=== PATIENT | male | born 1950 | race Caucasian/White ===

== ENCOUNTER 2020-09-29 14:54 | Inpatient (IN) ==
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
[2020-09-29] MEDS: SODIUM CHLORIDE 0.9% 1000ML 1,000 ML IV SCH ×2 (15:27→22:21)
[2020-09-29] MEDS ORDERED: SODIUM CHLORIDE 0.9% 1000ML 1,000 ML IV SCH (15:30)
[2020-09-29 15:41] LABS: Basophils # (auto) 0.02 K/uL (0-0.2); Basophils % (auto) 0.1 %; Eosinophils # (auto) 0.01 K/uL (0-0.5); Eosinophils % (auto) 0.1 %; Hematocrit (blood only) 43.3 % (42-52); Hemoglobin 14.8 g/dL (14.0-18.0); Immature Granulocytes # (auto) 0.06 K/uL (0.00-0.02); Immature Granulocytes % (auto) 0.4 %; Lymphocytes # (auto) 0.93 K/uL (1.2-3.4); Lymphocytes % (auto) 5.8 %; Mean Corpuscular Hemoglobin 31.6 pg (25-34); Mean Corpuscular Hgb Conc 34.2 g/dL (32-36); Mean Corpuscular Volume 92.5 fL (80-100); Mean Platelet Volume 10.2 fL (7.4-10.4); Monocytes # (auto) 1.57 K/uL (0.11-0.59); Monocytes % (auto) 9.7 %; Neutrophils # (auto) 13.56 K/uL (1.4-6.5); Neutrophils % (auto) 83.9 %; Platelet Count 256 K/uL (130-400); RDW Coefficient of Variation 13.4 % (11.5-14.5); RDW Standard Deviation 45.2 fL (36.4-46.3); Red Blood Count 4.68 M/uL (4.7-6.1); White Blood Count 16.15 K/uL (4.8-10.8)
[2020-09-29 15:53] LABS: INR 1.2 (0.9-1.1); Partial Thromboplastin Time 25.6 Seconds (21.0-31.0); Prothrombin Time 11.9 Seconds (9.0-12.0)
--- NOTE | 2020-09-29 16:01 | XRay Report ---
XR chest 1V portable CLINICAL HISTORY: SEPSIS COMPARISON STUDY: No previous studies for comparison. FINDINGS: The heart is mildly enlarged. There is aortic tortuosity/ectasia. There is no focal pulmona ry consolidation. A catheter/tubing overlies the left hemithorax. There is a minor scoliosis.[Slight increased density of the left lateral chest wall and left lung periphery, likely relates to technical factors IMPRESSION: No active disease in the chest. ACT 112: Negative or not required by law. Electronically signed by: Rigo Lozano M.D. 09/29/2020 3:59 PM
[2020-09-29 16:05] LABS: Albumin Level 3.3 gm/dl (3.4-5.0); BUN Creatinine Ratio 13.1 (10-20); Creatinine Clr Calc Pharmacy 29.6 ml/min; Est GFR (African American) 38.3 ml/min; Est GFR (Non-African American) 33.1 ml/min; Magnesium 2.3 mg/dl (1.8-2.4); Potassium 4.8 mmol/L (3.5-5.1)
[2020-09-29 16:08] LABS: Albumin Globulin Ratio 0.9 (0.9-2); Bilirubin,Total 1.8 mg/dl (0.2-1); Globulin 3.7 gm/dl (2.5-4.0)
[2020-09-29] MEDS ORDERED: HYDROCORTISONE SOD SUCCINATE 100 MG/2 ML VIAL IV STA (16:53)
[2020-09-29] MEDS ORDERED: CEFEPIME 2,000 MG/20 ML VIAL IV STA (16:53)
[2020-09-29] MEDS ORDERED: DAPTOmycin 475 MG in SYRINGE 0 ML IV ONE (16:53)
[2020-09-29] MEDS ORDERED: SODIUM CHLORIDE 0.9% 1000ML 1,000 ML IV ONE (16:53)
[2020-09-29] MEDS ORDERED: ONDANSETRON INJ 2 MG/ML 2 ML VIAL IV STA ×2 (17:06→18:43)
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
[2020-09-29 18:46] LABS: BUN Creatinine Ratio 16.4 (10-20); Calcium 8.2 mg/dl (8.5-10.1); Creatinine Clr Calc Pharmacy 32.9 ml/min; Est GFR (African American) 43.5 ml/min; Est GFR (Non-African American) 37.6 ml/min; Potassium 4.9 mmol/L (3.5-5.1)
[2020-09-29] MEDS ORDERED: CONSULT PHARMACY STA (19:49)
[2020-09-29] MEDS ORDERED: CEFEPIME CONSULT ACTIVE ONE (19:49)
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
--- NOTE | 2020-09-29 20:09 | CT Scan Report ---
CT head/brain wo con CLINICAL HISTORY: Blurry vision COMPARISON STUDY: No previous studies for comparison. TECHNIQUE: Axial CT of the brain is performed from the vertex to the skull base. IV contrast was not administered for this examination. A dose lowering technique was utilized adhering to the principles of ALARA. CT DOSE: 614.27 mGy.cm FINDINGS: No intra or extra-axial mass lesions are visualized. There is no CT evidence of acute cortical infarc tion. There is no evidence of midline shift. There is no acute hemorrhage. No calvarial fractures ar e visualized. There are minimal white matter hypodensities likely on a small vessel basis. There is no evidence of pathologic ventricular dilatation. There is minor ethmoid sinus mucosal thickening IMPRESSION: No acute intracranial findings ACT 112: Negative or not required by law. Electronically signed by: Rigo Lozano M.D. 09/29/2020 8:07 PM
[2020-09-29] MEDS ORDERED: ACETAMINOPHEN 325 MG TAB PO PRN (20:20)
[2020-09-29] MEDS ORDERED: Heparin IV Adult Wt-Based Standard *NO* Bolus Protocol ONE (20:20)
[2020-09-29] MEDS ORDERED: ICU PROTOCOL FOR HYPERGLYCEMIA PRN (20:20)
[2020-09-29] MEDS ORDERED: HEPARIN SODIUM/DEXTROSE 25,000 UNITS/500 ML BAG IV SCH (20:20)
[2020-09-29] MEDS ORDERED: ACYCLOVIR CONSULT ACTIVE PRN (20:30)
[2020-09-29] MEDS ORDERED: CEFEPIME CONSULT ACTIVE PRN (20:31)
[2020-09-29] MEDS ORDERED: SODIUM CHLORIDE 0.9% 50 ML BAG IV STA (21:06)
[2020-09-29] MEDS ORDERED: ALTEPLASE, RECOMBINANT 100 MG in EMPTY BAG 0 ML IV STA (21:06)
[2020-09-29] MEDS ORDERED: PRIMARY PLUMSET, PE LINED TUBING, 113 IN, NON-DEHP (2260-0500) IV STA (21:06)
[2020-09-29] MEDS ORDERED: DC ALL ANTICOAGULANTS STA (21:06)
--- NOTE | 2020-09-29 21:12 | Procedure Note ---
Procedure Note Date of Service September 29, 2020 Procedure: Arterial Line Placement Attending: Dr. Booker APC: Raad Santoro PA-C Indication: Monitoring on Pressors Anesthesia: Lidocaine 1% Verbal consent was discussed with the patient at great length at bedside. The patient did have a conversation with my attending physician regarding lifesaving measures including access as well as utilization of TPA for likely massive pulmonary embolism who is hemodynamically unstable. Indication, risks, and benefits were explained at length. Patient verbally consents to procedure in the setting of active extremis and need for close hemodynamic monitoring. A time-out was completed verifying correct patient, procedure, site, positioning, and implant(s) or special equipment if applicable. Allens test was performed to ensure adequate perfusion. Patients LEFT wrist was prepped and draped in the usual sterile fashion. Ultrasound guidance was used to aid needle placement. A 20g Arrow arterial line was introduced into the LEFT Radial artery. Catheter was threaded, and the needle was removed with appropriate blood return. Good waveform was observed. The patient tolerated the procedure well. Confirmation of placement with ultrasound. Blood Loss: Minimal Complications: Small, 1.5 cm hematoma noted at the access point. Line in place. Returns blood, flushes well. Transducing arterial wave forms appropriately. 4x4 gauze and sterile dressing placed. Will monitor for worsening hematoma or s/s of bleeding. Procedural Ultrasound Guidance: Procedure Date: Indication: Massive PE with poor hemodynamics, need for close BP monitoring prior to TPA administration, need for frequent labs s/p TPA administration. Attending: Dr. Booker APC: Raad Santoro PA-C Artery Identified: YES Line confirmed in Artery with ultrasound: YES Complications: NONE Patient tolerated procedure: WELL Coding CPT Codes Tubes, Drains, and Vasc Access - Tubes, Drains, and Vasc Access: [id number] Place Catheter In Artery ([id number]) [facility] [place]Charges[place] Tubes, Drains, and Vasc Access Procedure 1: Tubes, Drains, and Vasc Access: [id number] Place Catheter In Artery
[2020-09-29] MEDS ORDERED: Heparin IV Adult Wt-Based Low-Dose *NO* Bolus Protocol IV SCH (21:15)
[2020-09-29] MEDS ORDERED: ALTEPLASE, RECOMBINANT 10 MG in SYRINGE 0 ML IV ONE (21:28)
[2020-09-29] MEDS ORDERED: ALTEPLASE IV ONE (21:30)
[2020-09-29] MEDS ORDERED: NSS 50 ML--Send if TPA given as SVP IV ONE (21:30)
[2020-09-29] MEDS ORDERED: PRIMARY PLUMSET--Send if TPA given as SVP IV ONE (21:30)
[2020-09-29] MEDS ORDERED: RECOMBINANT IV ONE (21:30)
[2020-09-29 21:32] LABS: BUN Creatinine Ratio 20.3 (10-20); Calcium 7.9 mg/dl (8.5-10.1); Creatinine Clr Calc Pharmacy 53.8 ml/min; Est GFR (African American) 52.2 ml/min; Potassium 4.9 mmol/L (3.5-5.1)
[2020-09-29 21:37] LABS: Troponin I 2.44 ng/ml (0-0.045)
[2020-09-29] MEDS: DEXTROSE 5% IV SCH (21:37)
[2020-09-29] MEDS: ACYCLOVIR SOD IV SCH (21:37)
[2020-09-29] MEDS: DOCUSATE SODIUM 100 MG CAP PO SCH (23:26)
[2020-09-30 00:33] LABS: Hematocrit (blood only) 37.2 % (42-52); Hemoglobin 12.8 g/dL (14.0-18.0); Mean Corpuscular Hemoglobin 31.6 pg (25-34); Mean Corpuscular Hgb Conc 34.4 g/dL (32-36); Mean Corpuscular Volume 91.9 fL (80-100); Mean Platelet Volume 10.1 fL (7.4-10.4); Platelet Count 169 K/uL (130-400); RDW Coefficient of Variation 13.3 % (11.5-14.5); Red Blood Count 4.05 M/uL (4.7-6.1); White Blood Count 13.47 K/uL (4.8-10.8)
[2020-09-30 00:48] LABS: Partial Thromboplastin Ratio 1.6; Partial Thromboplastin Time 41.8 Seconds (21.0-31.0)
[2020-09-30 01:17] LABS: Appearance Urine Cloudy (Clear); Bacteria Urine Automated Negative (Negative); Blood Urine 1+ (Negative); Color Urine Dark Yellow; Glucose Urine UA Negative (Negative); Ketones Urine Trace (Negative); Leukocyte Esterase Urine Negative (Negative); Nitrite Urine Negative (Negative); Protein Urine 2+ (Negative); Specific Gravity Urine 1.021 (1.000-1.030); Urobilinogen Urine Negative (Negative)
[2020-09-30 01:29] LABS: Bilirubin Urine 1+ (Negative)
[2020-09-30 01:45] LABS: Partial Thromboplastin Ratio 1.4
[2020-09-30] MEDS: HEPARIN SODIUM/DEXTROSE 25,000 UNITS/500 ML BAG IV SCH ×2 (02:30→23:20)
[2020-09-30 02:42] LABS: Partial Thromboplastin Ratio 1.3; Partial Thromboplastin Time 33.5 Seconds (21.0-31.0)
[2020-09-30 05:43] LABS: Partial Thromboplastin Ratio 1.4
[2020-09-30 05:52] LABS: Albumin Level 2.5 gm/dl (3.4-5.0); BUN Creatinine Ratio 35.4 (10-20); Basophils # (auto) 0.02 K/uL (0-0.2); Basophils % (auto) 0.2 %; Calcium 7.7 mg/dl (8.5-10.1); Creatinine Clr Calc Pharmacy 74.5 ml/min; Est GFR (African American) 77.3 ml/min; Est GFR (Non-African American) 66.7 ml/min; Hematocrit (blood only) 35.6 % (42-52); Hemoglobin 12.2 g/dL (14.0-18.0); Immature Granulocytes # (auto) 0.03 K/uL (0.00-0.02); Immature Granulocytes % (auto) 0.3 %; Lymphocytes # (auto) 1.53 K/uL (1.2-3.4); Lymphocytes % (auto) 12.9 %; Mean Corpuscular Hemoglobin 31.6 pg (25-34); Mean Corpuscular Hgb Conc 34.3 g/dL (32-36); Mean Corpuscular Volume 92.2 fL (80-100); Mean Platelet Volume 10.4 fL (7.4-10.4); Monocytes # (auto) 1.18 K/uL (0.11-0.59); Neutrophils # (auto) 9.09 K/uL (1.4-6.5); Neutrophils % (auto) 76.6 %; Platelet Count 182 K/uL (130-400); Potassium 4.3 mmol/L (3.5-5.1); RDW Coefficient of Variation 13.5 % (11.5-14.5); RDW Standard Deviation 44.9 fL (36.4-46.3); Red Blood Count 3.86 M/uL (4.7-6.1); White Blood Count 11.85 K/uL (4.8-10.8)
[2020-09-30 05:59] LABS: Albumin Globulin Ratio 0.9 (0.9-2); Bilirubin,Total 1.4 mg/dl (0.2-1); Globulin 2.7 gm/dl (2.5-4.0); Phosphorus 3.4 mg/dl (2.5-4.9); Total Protein 5.2 gm/dl (6.4-8.2); Troponin I 2.05 ng/ml (0-0.045)
[2020-09-30] MEDS ORDERED: CEFEPIME 2,000 MG in SYRINGE 0 ML IV SCH (06:00)
--- NOTE | 2020-09-30 06:26 | Electrocardiogram Report ---
Test Reason : Blood Pressure : / mmHG Vent. Rate : 142 BPM Atrial Rate : 144 BPM P-R Int : 120 ms QRS Dur : 094 ms QT Int : 348 ms P-R-T Axes : 000 052 007 degrees QTc Int : 535 ms Poor data quality, interpretation may be adversely affected Sinus tachycardia Otherwise normal ECG No previous ECGs available Confirmed by Gregory Hoff ([id number]) on 09/30/2020 6:26:05 AM Referred By: Confirmed By:Gregory Hoff
--- NOTE | 2020-09-30 06:41 | Ultrasound Report ---
BILATERAL LOWER EXTREMITY VENOUS DOPPLER HISTORY: Acute pain and swelling of the right lower extremity eval ?DVT COMPARISON STUDY: None. FINDINGS: There is normal compressibility, flow, and augmentation within the left lower extremity jefry p venous structures. Occlusive thrombus noted within the right posterior tibial, peroneal and anterio r tibial veins. Superficial venous thrombosis within the right lesser saphenous vein, 4.7 cm from the popliteal confluence. IMPRESSION: 1. Right lower extremity deep and superficial venous thrombi as above. 2. No sonographic evidence of left-sided deep venous thrombosis. ACT 112: Negative or not required by law. Electronically signed by: Evens Thayer M.D. 09/30/2020 6:39 AM
[2020-09-30] MEDS ORDERED: HEPARIN IV BOLUS 3,000 UNITS in SYRINGE 0 ML IV SCH (07:00)
--- NOTE | 2020-09-30 07:01 | XRay Report ---
XR chest 1V portable HISTORY: 70 years-old Male f/u follow-up study in a patient with sepsis COMPARISON: 09/29/2020 TECHNIQUE: Portable AP view of the chest FINDINGS: Cardiomediastinal and hilar silhouettes are within normal limits. Calcified plaque the thoracic aorta . There is no pneumothorax, pleural effusion, airspace consolidation or overt pulmonary edema. Degene rative changes of the spine and left shoulder. IMPRESSION: No acute process. ACT 112: Negative or not required by law. The above report was generated using voice recognition software. It may contain grammatical, syntax o r spelling errors. Electronically signed by: Evens Thayer M.D. 09/30/2020 7:00 AM
--- NOTE | 2020-09-30 07:56 | Ultrasound Report ---
EXAMINATION: RENAL ULTRASOUND CLINICAL HISTORY: Acute renal insufficiency COMPARISON STUDY: None FINDINGS: The right kidney measures 11.6 cm. The left kidney measures approximately 12 cm. There is no evidence of hydronephrosis. There is a 21 mm right renal cyst. There is right renal cortical thin adi. Evaluation left kidney was limited as the patient was unable to cooperate with positioning. Neither ureteral jet was visualized. IMPRESSION : No evidence of hydronephrosis ACT 112: Negative or not required by law. Electronically signed by: Rigo Lozano M.D. 09/30/2020 7:54 AM
--- NOTE | 2020-09-30 08:07 | Critical Care Progress Note ---
Date of Service September 30, 2020 Assessment & Plan (1) Admitted to intensive care unit: Reason Critically Ill: 70-year-old male presenting with acute onset of hypertension, tachycardia, generalized weakness with concerns for possible sepsis-like presentation with elevated troponin of concern requiring close hemodynamic monitoring and possible need for pressors. NEURO - * CAM ICU: NEGATIVE * Ocular myasthenia: * Patient currently on steroids every other day. * Receive stress dose steroids in the emergency department. * Continue with daily p.o. dosing. CARDIAC/VASCULAR - * Acute cor pulmonale * Troponin greater than 3. * Start low-dose beta-sandy * Repeat limited echo * troponins down trending. * Hypotension: resolved * tachycardia: Improved RESPIRATORY - * Massive PE: * repeat limited echo * Supplemental O2 as needed: improving * COPD: * Ongoing home Rx as needed. GI/NUTRITION - * N.p.o. pending TPA administration. * Prophylaxis: Famotidine RENAL/LYTES - * SANTI: resolved * Lactic acid acidosis: Resolved - * UA reviewed: Hyaline casts and granular casts ENDO - * No history of diabetes or thyroid disease. * BSGs per unit protocol. ISS --> gtt per unit policy. HEME - * Stable H&H * Monitor closely for signs/symptoms of bleeding status post TPA administration. * Type and screen prior to TPA administration. ID - * Sepsis-like presentation: * Discontinue antibiotics LINES/IV ACCESS - * PIVs x3 * LEFT radial A-line DVT PROPHYLAXIS - * TPA --> heparin drip * SCDs Disposition: Able for downgrade out of ICU after 24 hours status post TPA (2) Elevated troponin: (3) SANTI (acute kidney injury): (4) Acute hypotension: (5) Tachycardia: (6) Sepsis: (7) DVT of axillary vein, acute right: Admission and Anticipated Discharge Date Admission Date: September 29, 2020 Supervising Physician Co-Signing Physician Notes Patient was discussed on multidisciplinary rounds I have personally spent 45 minutes of critical care time in the direct management of this patient. This is a life/limb threatening event. This includes time spent evaluating patient, direct bedside care, chart review, placing orders, interpretation of diagnostic studies, discussion with consultants, patient, and/or family members regarding treatment decisions, as well as other required patient management activities. This time is exclusive of all separately billable procedures, and teaching time and separate from and in addition to any other critical care service time. Subjective Feels improved compared to yesterday complains of diarrhea today Review of Systems Review of Systems: Diarrhea Physical Exam Physical Exam: General: Alert. nontoxic. Skin: Warm, dry, Head: Atraumatic Ears, nose, mouth and throat: airway patent Cardiovascular: Normal peripheral perfusion Respiratory: no respiratory distress Gastrointestinal: Non distended Musculoskeletal: No deformity Results & Data Results & Data ([facility]) Vital Signs (Past 12 Hours) Vital Signs Temp Pulse Pulse Resp BP BP Pulse Ox 09/30/20 04:37 101 H 27 H 112/78 94 09/30/20 04:30 107 H 25 H 96 09/30/20 03:37 97 H 21 108/83 94 09/30/20 03:30 99 H 25 H 93 09/30/20 03:00 102 H 23 94 09/30/20 02:37 103 H 20 111/77 95 09/30/20 02:30 101 H 25 H 93 09/30/20 02:00 103 H 24 93 09/30/20 01:37 103 H 27 H 161/96 H 96 09/30/20 01:32 101 H 26 H 102/78 94 09/30/20 01:30 94 H 24 94 09/30/20 01:27 88 26 H 98/72 L 95 09/30/20 01:22 93 H 25 H 93/71 L 95 09/30/20 01:17 93 H 29 H 96/72 L 93 09/30/20 01:12 97 H 21 111/83 96 09/30/20 01:07 95 H 25 H 106/85 93 09/30/20 01:02 93 H 24 111/73 90 09/30/20 01:00 97 H 20 94 09/30/20 00:57 99 H 23 111/81 93 09/30/20 00:52 99 H 26 H 108/70 95 09/30/20 00:47 99 H 28 H 106/73 93 09/30/20 00:42 96 H 26 H 107/73 95 09/30/20 00:37 99 H 25 H 98/72 L 95 09/30/20 00:32 102 H 26 H 104/73 96 09/30/20 00:30 97 H 24 96 09/30/20 00:27 104 H 22 106/74 95 09/30/20 00:22 104 H 23 112/79 95 09/30/20 00:17 102 H 27 H 105/76 92 09/30/20 00:12 101 H 29 H 110/71 92 09/30/20 00:07 105 H 24 113/75 94 09/30/20 00:02 112 H 30 H 119/91 97 09/30/20 00:00 109 H 27 H 95 09/29/20 23:57 113 H 26 H 151/94 H 95 09/29/20 23:52 100 H 25 H 104/77 96 09/29/20 23:47 110 H 22 108/68 94 09/29/20 23:42 105 H 27 H 108/71 95 09/29/20 23:37 107 H 23 108/79 95 09/29/20 23:32 107 H 23 117/72 96 09/29/20 23:30 107 H 25 H 96 09/29/20 23:27 115 H 23 103/78 96 09/29/20 23:22 110 H 26 H 99/70 L 96 09/29/20 23:17 113 H 25 H 95/71 L 96 09/29/20 23:12 116 H 27 H 90/66 L 94 09/29/20 23:07 111 H 24 90/67 L 94 09/29/20 23:02 113 H 27 H 92/66 L 94 09/29/20 23:00 115 H 28 H 94 09/29/20 22:47 116 H 26 H 98/71 L 94 09/29/20 22:12 121 H 24 116/84 91 09/29/20 22:07 122 H 32 H 102/71 91 09/29/20 22:02 126 H 29 H 96/77 L 89 L 09/29/20 22:00 120 H 24 92 09/29/20 21:57 121 H 23 109/90 90 09/29/20 21:52 122 H 25 H 107/80 91 09/29/20 21:47 122 H 28 H 107/82 91 09/29/20 21:42 121 H 30 H 97/72 L 92 09/29/20 21:37 121 H 23 85/71 L 92 09/29/20 21:32 122 H 22 106/76 92 09/29/20 21:30 120 H 28 H 92 09/29/20 21:27 123 H 28 H 108/78 91 09/29/20 21:12 123 H 25 H 109/79 92 09/29/20 21:01 125 H 26 H 109/81 92 09/29/20 21:00 126 H 21 91 09/29/20 20:30 124 H 22 92 09/29/20 20:25 126 H 30 H 115/85 91 09/29/20 20:20 36.6 C 130 H 130 H 22 115/85 96 09/29/20 20:17 130 H 26 H 93 Pulse Ox 09/30/20 04:37 09/30/20 04:30 09/30/20 03:37 09/30/20 03:30 09/30/20 03:00 09/30/20 02:37 09/30/20 02:30 09/30/20 02:00 09/30/20 01:37 09/30/20 01:32 09/30/20 01:30 09/30/20 01:27 09/30/20 01:22 09/30/20 01:17 09/30/20 01:12 09/30/20 01:07 09/30/20 01:02 09/30/20 01:00 09/30/20 00:57 09/30/20 00:52 09/30/20 00:47 09/30/20 00:42 09/30/20 00:37 09/30/20 00:32 09/30/20 00:30 09/30/20 00:27 09/30/20 00:22 09/30/20 00:17 09/30/20 00:12 09/30/20 00:07 09/30/20 00:02 09/30/20 00:00 09/29/20 23:57 09/29/20 23:52 09/29/20 23:47 09/29/20 23:42 09/29/20 23:37 09/29/20 23:32 09/29/20 23:30 09/29/20 23:27 09/29/20 23:22 09/29/20 23:17 09/29/20 23:12 09/29/20 23:07 09/29/20 23:02 09/29/20 23:00 09/29/20 22:47 09/29/20 22:12 09/29/20 22:07 09/29/20 22:02 09/29/20 22:00 09/29/20 21:57 09/29/20 21:52 09/29/20 21:47 09/29/20 21:42 09/29/20 21:37 09/29/20 21:32 09/29/20 21:30 09/29/20 21:27 09/29/20 21:12 09/29/20 21:01 09/29/20 21:00 09/29/20 20:30 09/29/20 20:25 09/29/20 20:20 92 09/29/20 20:17 Laboratory Results 09/30/20 09/30/20 09/30/20 Range/Units 06:04 05:19 05:19 WBC (4.8-10.8) K/uL RBC (4.7-6.1) M/uL Hgb (14.0-18.0) g/dL Hct (42-52) % MCV (80-100) fL MCH (25-34) pg MCHC (32-36) g/dL RDW Std Deviation (36.4-46.3) fL RDW Coeff of Willian (11.5-14.5) % Plt Count (130-400) K/uL MPV (7.4-10.4) fL Immature Gran % (Auto) % Neut % (Auto) % Lymph % (Auto) % [place] % (Auto) % Eos % (Auto) % Baso % (Auto) % Neut # (Auto) (1.4-6.5) K/uL Lymph # (Auto) (1.2-3.4) K/uL [place] # (Auto) (0.11-0.59) K/uL Eos # (Auto) (0-0.5) K/uL Baso # (Auto) (0-0.2) K/uL Immature Gran # (Auto) (0.00-0.02) K/uL PT (9.0-12.0) Seconds INR (0.9-1.1) APTT (21.0-31.0) Seconds PTT Ratio Sodium (136-145) mmol/L Potassium (3.5-5.1) mmol/L Chloride (98-107) mmol/L Carbon Dioxide (21-32) mmol/L Anion Gap (3-11) BUN (7-18) mg/dl Creatinine (0.6-1.4) mg/dl Est Cr Clr Drug Dosing ml/min Est GFR ( Amer) ml/min Est GFR (Non-Af Amer) ml/min BUN/Creatinine Ratio (10-20) Glucose (70-99) mg/dl POC Glucose 116 H (70-99) mg/dl Lactate (0.4-2.0) mmol/L Calcium (8.5-10.1) mg/dl Phosphorus (2.5-4.9) mg/dl Magnesium (1.8-2.4) mg/dl Total Bilirubin (0.2-1) mg/dl AST (15-37) U/L ALT (12-78) U/L Alkaline Phosphatase (45-117) U/L Troponin I (0-0.045) ng/ml NT-Pro-B Natriuret Pep (0-900) pg/ml Total Protein (6.4-8.2) gm/dl Albumin (3.4-5.0) gm/dl Globulin (2.5-4.0) gm/dl Albumin/Globulin Ratio (0.9-2) Procalcitonin 0.15 (0-0.5) ng/ml Random Cortisol Pending Urine Color Urine Appearance (Clear) Urine pH (4.5-7.5) Ur Specific [place] (1.000-1.030) Urine Protein (Negative) Urine Glucose (UA) (Negative) Urine Ketones (Negative) Urine Blood (Negative) Urine Nitrite (Negative) Urine Bilirubin (Negative) Urine Urobilinogen (Negative) Ur Leukocyte Esterase (Negative) Urine WBC (Auto) (0-5) /hpf Urine RBC (Auto) (0-4) /hpf U Hyaline Cast (Auto) (0-5) /lpf U Epithel Cells (Auto) (0-5) /lpf Urine Bacteria (Auto) (Negative) Granular Casts (0) /lpf Nasal Screen MRSA (PCR) (Negative) COVID-19 Eval Order SARS-CoV-2 (PCR) (Negative) Blood Type Antibody Screen 09/30/20 09/30/20 09/30/20 Range/Units 05:19 05:19 05:19 WBC 11.85 H (4.8-10.8) K/uL RBC 3.86 L (4.7-6.1) M/uL Hgb 12.2 L (14.0-18.0) g/dL Hct 35.6 L (42-52) % MCV 92.2 (80-100) fL MCH 31.6 (25-34) pg MCHC 34.3 (32-36) g/dL RDW Std Deviation 44.9 (36.4-46.3) fL RDW Coeff of Willian 13.5 (11.5-14.5) % Plt Count 182 (130-400) K/uL MPV 10.4 (7.4-10.4) fL Immature Gran % (Auto) 0.3 % Neut % (Auto) 76.6 % Lymph % (Auto) 12.9 % [place] % (Auto) 10.0 % Eos % (Auto) 0.0 % Baso % (Auto) 0.2 % Neut # (Auto) 9.09 H (1.4-6.5) K/uL Lymph # (Auto) 1.53 (1.2-3.4) K/uL [place] # (Auto) 1.18 H (0.11-0.59) K/uL Eos # (Auto) 0.00 (0-0.5) K/uL Baso # (Auto) 0.02 (0-0.2) K/uL Immature Gran # (Auto) 0.03 H (0.00-0.02) K/uL PT (9.0-12.0) Seconds INR (0.9-1.1) APTT 37.0 H (21.0-31.0) Seconds PTT Ratio 1.4 Sodium (136-145) mmol/L Potassium (3.5-5.1) mmol/L Chloride (98-107) mmol/L Carbon Dioxide (21-32) mmol/L Anion Gap (3-11) BUN (7-18) mg/dl Creatinine (0.6-1.4) mg/dl Est Cr Clr Drug Dosing ml/min Est GFR ( Amer) ml/min Est GFR (Non-Af Amer) ml/min BUN/Creatinine Ratio (10-20) Glucose (70-99) mg/dl POC Glucose (70-99) mg/dl Lactate 1.0 (0.4-2.0) mmol/L Calcium (8.5-10.1) mg/dl Phosphorus (2.5-4.9) mg/dl Magnesium (1.8-2.4) mg/dl Total Bilirubin (0.2-1) mg/dl AST (15-37) U/L ALT (12-78) U/L Alkaline Phosphatase (45-117) U/L Troponin I (0-0.045) ng/ml NT-Pro-B Natriuret Pep (0-900) pg/ml Total Protein (6.4-8.2) gm/dl Albumin (3.4-5.0) gm/dl Globulin (2.5-4.0) gm/dl Albumin/Globulin Ratio (0.9-2) Procalcitonin (0-0.5) ng/ml Random Cortisol Urine Color Urine Appearance (Clear) Urine pH (4.5-7.5) Ur Specific [place] (1.000-1.030) Urine Protein (Negative) Urine Glucose (UA) (Negative) Urine Ketones (Negative) Urine Blood (Negative) Urine Nitrite (Negative) Urine Bilirubin (Negative) Urine Urobilinogen (Negative) Ur Leukocyte Esterase (Negative) Urine WBC (Auto) (0-5) /hpf Urine RBC (Auto) (0-4) /hpf U Hyaline Cast (Auto) (0-5) /lpf U Epithel Cells (Auto) (0-5) /lpf Urine Bacteria (Auto) (Negative) Granular Casts (0) /lpf Nasal Screen MRSA (PCR) (Negative) COVID-19 Eval Order SARS-CoV-2 (PCR) (Negative) Blood Type Antibody Screen 09/30/20 09/30/20 09/30/20 Range/Units 05:19 02:15 01:15 WBC (4.8-10.8) K/uL RBC (4.7-6.1) M/uL Hgb (14.0-18.0) g/dL Hct (42-52) % MCV (80-100) fL MCH (25-34) pg MCHC (32-36) g/dL RDW Std Deviation (36.4-46.3) fL RDW Coeff of Willian (11.5-14.5) % Plt Count (130-400) K/uL MPV (7.4-10.4) fL Immature Gran % (Auto) % Neut % (Auto) % Lymph % (Auto) % [place] % (Auto) % Eos % (Auto) % Baso % (Auto) % Neut # (Auto) (1.4-6.5) K/uL Lymph # (Auto) (1.2-3.4) K/uL [place] # (Auto) (0.11-0.59) K/uL Eos # (Auto) (0-0.5) K/uL Baso # (Auto) (0-0.2) K/uL Immature Gran # (Auto) (0.00-0.02) K/uL PT (9.0-12.0) Seconds INR (0.9-1.1) APTT 33.5 H 38.0 H (21.0-31.0) Seconds PTT Ratio 1.3 1.4 Sodium 141 (136-145) mmol/L Potassium 4.3 (3.5-5.1) mmol/L Chloride 113 H (98-107) mmol/L Carbon Dioxide 25 (21-32) mmol/L Anion Gap 3.0 (3-11) BUN 40 H (7-18) mg/dl Creatinine 1.12 D (0.6-1.4) mg/dl Est Cr Clr Drug Dosing 74.5 ml/min Est GFR ( Amer) 77.3 ml/min Est GFR (Non-Af Amer) 66.7 ml/min BUN/Creatinine Ratio 35.4 H (10-20) Glucose 120 H (70-99) mg/dl POC Glucose (70-99) mg/dl Lactate (0.4-2.0) mmol/L Calcium 7.7 L (8.5-10.1) mg/dl Phosphorus 3.4 (2.5-4.9) mg/dl Magnesium 2.0 (1.8-2.4) mg/dl Total Bilirubin 1.4 H (0.2-1) mg/dl AST 28 (15-37) U/L ALT 39 (12-78) U/L Alkaline Phosphatase 61 (45-117) U/L Troponin I 2.050 H* (0-0.045) ng/ml NT-Pro-B Natriuret Pep (0-900) pg/ml Total Protein 5.2 L D (6.4-8.2) gm/dl Albumin 2.5 L (3.4-5.0) gm/dl Globulin 2.7 (2.5-4.0) gm/dl Albumin/Globulin Ratio 0.9 (0.9-2) Procalcitonin (0-0.5) ng/ml Random Cortisol Urine Color Urine Appearance (Clear) Urine pH (4.5-7.5) Ur Specific [place] (1.000-1.030) Urine Protein (Negative) Urine Glucose (UA) (Negative) Urine Ketones (Negative) Urine Blood (Negative) Urine Nitrite (Negative) Urine Bilirubin (Negative) Urine Urobilinogen (Negative) Ur Leukocyte Esterase (Negative) Urine WBC (Auto) (0-5) /hpf Urine RBC (Auto) (0-4) /hpf U Hyaline Cast (Auto) (0-5) /lpf U Epithel Cells (Auto) (0-5) /lpf Urine Bacteria (Auto) (Negative) Granular Casts (0) /lpf Nasal Screen MRSA (PCR) (Negative) COVID-19 Eval Order SARS-CoV-2 (PCR) (Negative) Blood Type Antibody Screen 09/30/20 09/30/20 09/30/20 Range/Units 00:56 00:21 00:21 WBC 13.47 H (4.8-10.8) K/uL RBC 4.05 L (4.7-6.1) M/uL Hgb 12.8 L (14.0-18.0) g/dL Hct 37.2 L (42-52) % MCV 91.9 (80-100) fL MCH 31.6 (25-34) pg MCHC 34.4 (32-36) g/dL RDW Std Deviation 45.0 (36.4-46.3) fL RDW Coeff of Willian 13.3 (11.5-14.5) % Plt Count 169 (130-400) K/uL MPV 10.1 (7.4-10.4) fL Immature Gran % (Auto) % Neut % (Auto) % Lymph % (Auto) % [place] % (Auto) % Eos % (Auto) % Baso % (Auto) % Neut # (Auto) (1.4-6.5) K/uL Lymph # (Auto) (1.2-3.4) K/uL [place] # (Auto) (0.11-0.59) K/uL Eos # (Auto) (0-0.5) K/uL Baso # (Auto) (0-0.2) K/uL Immature Gran # (Auto) (0.00-0.02) K/uL PT (9.0-12.0) Seconds INR (0.9-1.1) APTT 41.8 H (21.0-31.0) Seconds PTT Ratio 1.6 Sodium (136-145) mmol/L Potassium (3.5-5.1) mmol/L Chloride (98-107) mmol/L Carbon Dioxide (21-32) mmol/L Anion Gap (3-11) BUN (7-18) mg/dl Creatinine (0.6-1.4) mg/dl Est Cr Clr Drug Dosing ml/min Est GFR ( Amer) ml/min Est GFR (Non-Af Amer) ml/min BUN/Creatinine Ratio (10-20) Glucose (70-99) mg/dl POC Glucose (70-99) mg/dl Lactate (0.4-2.0) mmol/L Calcium (8.5-10.1) mg/dl Phosphorus (2.5-4.9) mg/dl Magnesium (1.8-2.4) mg/dl Total Bilirubin (0.2-1) mg/dl AST (15-37) U/L ALT (12-78) U/L Alkaline Phosphatase (45-117) U/L Troponin I (0-0.045) ng/ml NT-Pro-B Natriuret Pep (0-900) pg/ml Total Protein (6.4-8.2) gm/dl Albumin (3.4-5.0) gm/dl Globulin (2.5-4.0) gm/dl Albumin/Globulin Ratio (0.9-2) Procalcitonin (0-0.5) ng/ml Random Cortisol Urine Color Dark Yellow Urine Appearance Cloudy A (Clear) Urine pH 5.0 (4.5-7.5) Ur Specific [place] 1.021 (1.000-1.030) Urine Protein 2+ H (Negative) Urine Glucose (UA) Negative (Negative) Urine Ketones Trace H (Negative) Urine Blood 1+ H (Negative) Urine Nitrite Negative (Negative) Urine Bilirubin 1+ H (Negative) Urine Urobilinogen Negative (Negative) Ur Leukocyte Esterase Negative (Negative) Urine WBC (Auto) 1-5 (0-5) /hpf Urine RBC (Auto) 5-10 H (0-4) /hpf U Hyaline Cast (Auto) 5-10 H (0-5) /lpf U Epithel Cells (Auto) 10-20 H (0-5) /lpf Urine Bacteria (Auto) Negative (Negative) Granular Casts 1-5 H (0) /lpf Nasal Screen MRSA (PCR) (Negative) COVID-19 Eval Order SARS-CoV-2 (PCR) (Negative) Blood Type Antibody Screen 09/29/20 09/29/20 09/29/20 Range/Units 23:16 21:15 21:00 WBC (4.8-10.8) K/uL RBC (4.7-6.1) M/uL Hgb (14.0-18.0) g/dL Hct (42-52) % MCV (80-100) fL MCH (25-34) pg MCHC (32-36) g/dL RDW Std Deviation (36.4-46.3) fL RDW Coeff of Willian (11.5-14.5) % Plt Count (130-400) K/uL MPV (7.4-10.4) fL Immature Gran % (Auto) % Neut % (Auto) % Lymph % (Auto) % [place] % (Auto) % Eos % (Auto) % Baso % (Auto) % Neut # (Auto) (1.4-6.5) K/uL Lymph # (Auto) (1.2-3.4) K/uL [place] # (Auto) (0.11-0.59) K/uL Eos # (Auto) (0-0.5) K/uL Baso # (Auto) (0-0.2) K/uL Immature Gran # (Auto) (0.00-0.02) K/uL PT (9.0-12.0) Seconds INR (0.9-1.1) APTT (21.0-31.0) Seconds PTT Ratio Sodium (136-145) mmol/L Potassium (3.5-5.1) mmol/L Chloride (98-107) mmol/L Carbon Dioxide (21-32) mmol/L Anion Gap (3-11) BUN (7-18) mg/dl Creatinine (0.6-1.4) mg/dl Est Cr Clr Drug Dosing ml/min Est GFR ( Amer) ml/min Est GFR (Non-Af Amer) ml/min BUN/Creatinine Ratio (10-20) Glucose (70-99) mg/dl POC Glucose 127 H (70-99) mg/dl Lactate 2.4 H* (0.4-2.0) mmol/L Calcium (8.5-10.1) mg/dl Phosphorus (2.5-4.9) mg/dl Magnesium (1.8-2.4) mg/dl Total Bilirubin (0.2-1) mg/dl AST (15-37) U/L ALT (12-78) U/L Alkaline Phosphatase (45-117) U/L Troponin I (0-0.045) ng/ml NT-Pro-B Natriuret Pep (0-900) pg/ml Total Protein (6.4-8.2) gm/dl Albumin (3.4-5.0) gm/dl Globulin (2.5-4.0) gm/dl Albumin/Globulin Ratio (0.9-2) Procalcitonin (0-0.5) ng/ml Random Cortisol Urine Color Urine Appearance (Clear) Urine pH (4.5-7.5) Ur Specific [place] (1.000-1.030) Urine Protein (Negative) Urine Glucose (UA) (Negative) Urine Ketones (Negative) Urine Blood (Negative) Urine Nitrite (Negative) Urine Bilirubin (Negative) Urine Urobilinogen (Negative) Ur Leukocyte Esterase (Negative) Urine WBC (Auto) (0-5) /hpf Urine RBC (Auto) (0-4) /hpf U Hyaline Cast (Auto) (0-5) /lpf U Epithel Cells (Auto) (0-5) /lpf Urine Bacteria (Auto) (Negative) Granular Casts (0) /lpf Nasal Screen MRSA (PCR) (Negative) COVID-19 Eval Order SARS-CoV-2 (PCR) (Negative) Blood Type O Positive Antibody Screen NEGATIVE 09/29/20 09/29/20 09/29/20 Range/Units 21:00 20:24 18:22 WBC (4.8-10.8) K/uL RBC (4.7-6.1) M/uL Hgb (14.0-18.0) g/dL Hct (42-52) % MCV (80-100) fL MCH (25-34) pg MCHC (32-36) g/dL RDW Std Deviation (36.4-46.3) fL RDW Coeff of Willian (11.5-14.5) % Plt Count (130-400) K/uL MPV (7.4-10.4) fL Immature Gran % (Auto) % Neut % (Auto) % Lymph % (Auto) % [place] % (Auto) % Eos % (Auto) % Baso % (Auto) % Neut # (Auto) (1.4-6.5) K/uL Lymph # (Auto) (1.2-3.4) K/uL [place] # (Auto) (0.11-0.59) K/uL Eos # (Auto) (0-0.5) K/uL Baso # (Auto) (0-0.2) K/uL Immature Gran # (Auto) (0.00-0.02) K/uL PT (9.0-12.0) Seconds INR (0.9-1.1) APTT (21.0-31.0) Seconds PTT Ratio Sodium 138 138 (136-145) mmol/L Potassium 4.9 4.9 (3.5-5.1) mmol/L Chloride 108 H 107 (98-107) mmol/L Carbon Dioxide 24 23 (21-32) mmol/L Anion Gap 6.0 8.0 (3-11) BUN 32 H 30 H (7-18) mg/dl Creatinine 1.55 H 1.80 H (0.6-1.4) mg/dl Est Cr Clr Drug Dosing 53.8 32.9 ml/min Est GFR ( Amer) 52.2 43.5 ml/min Est GFR (Non-Af Amer) 45.0 37.6 ml/min BUN/Creatinine Ratio 20.3 H 16.4 (10-20) Glucose 133 H 144 H (70-99) mg/dl POC Glucose (70-99) mg/dl Lactate (0.4-2.0) mmol/L Calcium 7.9 L 8.2 L (8.5-10.1) mg/dl Phosphorus (2.5-4.9) mg/dl Magnesium (1.8-2.4) mg/dl Total Bilirubin (0.2-1) mg/dl AST (15-37) U/L ALT (12-78) U/L Alkaline Phosphatase (45-117) U/L Troponin I 2.440 H* (0-0.045) ng/ml NT-Pro-B Natriuret Pep 960 H (0-900) pg/ml Total Protein (6.4-8.2) gm/dl Albumin (3.4-5.0) gm/dl Globulin (2.5-4.0) gm/dl Albumin/Globulin Ratio (0.9-2) Procalcitonin (0-0.5) ng/ml Random Cortisol Urine Color Urine Appearance (Clear) Urine pH (4.5-7.5) Ur Specific [place] (1.000-1.030) Urine Protein (Negative) Urine Glucose (UA) (Negative) Urine Ketones (Negative) Urine Blood (Negative) Urine Nitrite (Negative) Urine Bilirubin (Negative) Urine Urobilinogen (Negative) Ur Leukocyte Esterase (Negative) Urine WBC (Auto) (0-5) /hpf Urine RBC (Auto) (0-4) /hpf U Hyaline Cast (Auto) (0-5) /lpf U Epithel Cells (Auto) (0-5) /lpf Urine Bacteria (Auto) (Negative) Granular Casts (0) /lpf Nasal Screen MRSA (PCR) Negative (Negative) COVID-19 Eval Order SARS-CoV-2 (PCR) (Negative) Blood Type Antibody Screen 09/29/20 09/29/20 09/29/20 Range/Units 17:26 17:26 17:11 WBC (4.8-10.8) K/uL RBC (4.7-6.1) M/uL Hgb (14.0-18.0) g/dL Hct (42-52) % MCV (80-100) fL MCH (25-34) pg MCHC (32-36) g/dL RDW Std Deviation (36.4-46.3) fL RDW Coeff of Willian (11.5-14.5) % Plt Count (130-400) K/uL MPV (7.4-10.4) fL Immature Gran % (Auto) % Neut % (Auto) % Lymph % (Auto) % [place] % (Auto) % Eos % (Auto) % Baso % (Auto) % Neut # (Auto) (1.4-6.5) K/uL Lymph # (Auto) (1.2-3.4) K/uL [place] # (Auto) (0.11-0.59) K/uL Eos # (Auto) (0-0.5) K/uL Baso # (Auto) (0-0.2) K/uL Immature Gran # (Auto) (0.00-0.02) K/uL PT (9.0-12.0) Seconds INR (0.9-1.1) APTT (21.0-31.0) Seconds PTT Ratio Sodium (136-145) mmol/L Potassium (3.5-5.1) mmol/L Chloride (98-107) mmol/L Carbon Dioxide (21-32) mmol/L Anion Gap (3-11) BUN (7-18) mg/dl Creatinine (0.6-1.4) mg/dl Est Cr Clr Drug Dosing ml/min Est GFR ( Amer) ml/min Est GFR (Non-Af Amer) ml/min BUN/Creatinine Ratio (10-20) Glucose (70-99) mg/dl POC Glucose (70-99) mg/dl Lactate 5.3 H* (0.4-2.0) mmol/L Calcium (8.5-10.1) mg/dl Phosphorus (2.5-4.9) mg/dl Magnesium (1.8-2.4) mg/dl Total Bilirubin (0.2-1) mg/dl AST (15-37) U/L ALT (12-78) U/L Alkaline Phosphatase (45-117) U/L Troponin I (0-0.045) ng/ml NT-Pro-B Natriuret Pep (0-900) pg/ml Total Protein (6.4-8.2) gm/dl Albumin (3.4-5.0) gm/dl Globulin (2.5-4.0) gm/dl Albumin/Globulin Ratio (0.9-2) Procalcitonin (0-0.5) ng/ml Random Cortisol Urine Color Urine Appearance (Clear) Urine pH (4.5-7.5) Ur Specific [place] (1.000-1.030) Urine Protein (Negative) Urine Glucose (UA) (Negative) Urine Ketones (Negative) Urine Blood (Negative) Urine Nitrite (Negative) Urine Bilirubin (Negative) Urine Urobilinogen (Negative) Ur Leukocyte Esterase (Negative) Urine WBC (Auto) (0-5) /hpf Urine RBC (Auto) (0-4) /hpf U Hyaline Cast (Auto) (0-5) /lpf U Epithel Cells (Auto) (0-5) /lpf Urine Bacteria (Auto) (Negative) Granular Casts (0) /lpf Nasal Screen MRSA (PCR) (Negative) COVID-19 Eval Order Covid19 at [facility] SARS-CoV-2 (PCR) NEGATIVE (Negative) Blood Type Antibody Screen 09/29/20 09/29/20 09/29/20 Range/Units 17:11 15:35 15:35 WBC (4.8-10.8) K/uL RBC (4.7-6.1) M/uL Hgb (14.0-18.0) g/dL Hct (42-52) % MCV (80-100) fL MCH (25-34) pg MCHC (32-36) g/dL RDW Std Deviation (36.4-46.3) fL RDW Coeff of Willian (11.5-14.5) % Plt Count (130-400) K/uL MPV (7.4-10.4) fL Immature Gran % (Auto) % Neut % (Auto) % Lymph % (Auto) % [place] % (Auto) % Eos % (Auto) % Baso % (Auto) % Neut # (Auto) (1.4-6.5) K/uL Lymph # (Auto) (1.2-3.4) K/uL [place] # (Auto) (0.11-0.59) K/uL Eos # (Auto) (0-0.5) K/uL Baso # (Auto) (0-0.2) K/uL Immature Gran # (Auto) (0.00-0.02) K/uL PT (9.0-12.0) Seconds INR (0.9-1.1) APTT (21.0-31.0) Seconds PTT Ratio Sodium 137 (136-145) mmol/L Potassium 4.8 (3.5-5.1) mmol/L Chloride 103 (98-107) mmol/L Carbon Dioxide 26 (21-32) mmol/L Anion Gap 8.0 (3-11) BUN 26 H (7-18) mg/dl Creatinine 2.00 H (0.6-1.4) mg/dl Est Cr Clr Drug Dosing 29.6 ml/min Est GFR ( Amer) 38.3 ml/min Est GFR (Non-Af Amer) 33.1 ml/min BUN/Creatinine Ratio 13.1 (10-20) Glucose 155 H (70-99) mg/dl POC Glucose (70-99) mg/dl Lactate 3.5 H* (0.4-2.0) mmol/L Calcium 9.0 (8.5-10.1) mg/dl Phosphorus (2.5-4.9) mg/dl Magnesium 2.3 (1.8-2.4) mg/dl Total Bilirubin 1.8 H (0.2-1) mg/dl AST 24 (15-37) U/L ALT 33 (12-78) U/L Alkaline Phosphatase 84 (45-117) U/L Troponin I 3.120 H* (0-0.045) ng/ml NT-Pro-B Natriuret Pep (0-900) pg/ml Total Protein 7.0 (6.4-8.2) gm/dl Albumin 3.3 L (3.4-5.0) gm/dl Globulin 3.7 (2.5-4.0) gm/dl Albumin/Globulin Ratio 0.9 (0.9-2) Procalcitonin (0-0.5) ng/ml Random Cortisol Urine Color Urine Appearance (Clear) Urine pH (4.5-7.5) Ur Specific [place] (1.000-1.030) Urine Protein (Negative) Urine Glucose (UA) (Negative) Urine Ketones (Negative) Urine Blood (Negative) Urine Nitrite (Negative) Urine Bilirubin (Negative) Urine Urobilinogen (Negative) Ur Leukocyte Esterase (Negative) Urine WBC (Auto) (0-5) /hpf Urine RBC (Auto) (0-4) /hpf U Hyaline Cast (Auto) (0-5) /lpf U Epithel Cells (Auto) (0-5) /lpf Urine Bacteria (Auto) (Negative) Granular Casts (0) /lpf Nasal Screen MRSA (PCR) (Negative) COVID-19 Eval Order SARS-CoV-2 (PCR) (Negative) Blood Type Antibody Screen 09/29/20 09/29/20 Range/Units 15:35 15:35 WBC 16.15 H (4.8-10.8) K/uL RBC 4.68 L (4.7-6.1) M/uL Hgb 14.8 (14.0-18.0) g/dL Hct 43.3 (42-52) % MCV 92.5 (80-100) fL MCH 31.6 (25-34) pg MCHC 34.2 (32-36) g/dL RDW Std Deviation 45.2 (36.4-46.3) fL RDW Coeff of Willian 13.4 (11.5-14.5) % Plt Count 256 (130-400) K/uL MPV 10.2 (7.4-10.4) fL Immature Gran % (Auto) 0.4 % Neut % (Auto) 83.9 % Lymph % (Auto) 5.8 % [place] % (Auto) 9.7 % Eos % (Auto) 0.1 % Baso % (Auto) 0.1 % Neut # (Auto) 13.56 H (1.4-6.5) K/uL Lymph # (Auto) 0.93 L (1.2-3.4) K/uL [place] # (Auto) 1.57 H (0.11-0.59) K/uL Eos # (Auto) 0.01 (0-0.5) K/uL Baso # (Auto) 0.02 (0-0.2) K/uL Immature Gran # (Auto) 0.06 H (0.00-0.02) K/uL PT 11.9 (9.0-12.0) Seconds INR 1.2 H (0.9-1.1) APTT 25.6 (21.0-31.0) Seconds PTT Ratio 1.0 Sodium (136-145) mmol/L Potassium (3.5-5.1) mmol/L Chloride (98-107) mmol/L Carbon Dioxide (21-32) mmol/L Anion Gap (3-11) BUN (7-18) mg/dl Creatinine (0.6-1.4) mg/dl Est Cr Clr Drug Dosing ml/min Est GFR ( Amer) ml/min Est GFR (Non-Af Amer) ml/min BUN/Creatinine Ratio (10-20) Glucose (70-99) mg/dl POC Glucose (70-99) mg/dl Lactate (0.4-2.0) mmol/L Calcium (8.5-10.1) mg/dl Phosphorus (2.5-4.9) mg/dl Magnesium (1.8-2.4) mg/dl Total Bilirubin (0.2-1) mg/dl AST (15-37) U/L ALT (12-78) U/L Alkaline Phosphatase (45-117) U/L Troponin I (0-0.045) ng/ml NT-Pro-B Natriuret Pep (0-900) pg/ml Total Protein (6.4-8.2) gm/dl Albumin (3.4-5.0) gm/dl Globulin (2.5-4.0) gm/dl Albumin/Globulin Ratio (0.9-2) Procalcitonin (0-0.5) ng/ml Random Cortisol Urine Color Urine Appearance (Clear) Urine pH (4.5-7.5) Ur Specific [place] (1.000-1.030) Urine Protein (Negative) Urine Glucose (UA) (Negative) Urine Ketones (Negative) Urine Blood (Negative) Urine Nitrite (Negative) Urine Bilirubin (Negative) Urine Urobilinogen (Negative) Ur Leukocyte Esterase (Negative) Urine WBC (Auto) (0-5) /hpf Urine RBC (Auto) (0-4) /hpf U Hyaline Cast (Auto) (0-5) /lpf U Epithel Cells (Auto) (0-5) /lpf Urine Bacteria (Auto) (Negative) Granular Casts (0) /lpf Nasal Screen MRSA (PCR) (Negative) COVID-19 Eval Order SARS-CoV-2 (PCR) (Negative) Blood Type Antibody Screen Coding Level of Care Code Critical Care 1st 30-74 mins Diagnoses Admitted to intensive care unit Z78.9 Elevated troponin R77.8 SANTI (acute kidney injury) N17.9 Acute hypotension I95.9 Tachycardia R00.0 Sepsis A41.9; R65.20; N17.9 Acute renal failure type: unspecified Sepsis acute organ dysfunction status: with acute organ dysfunction Sepsis type: sepsis due to unspecified organism Severe sepsis acute organ dysfunction type: acute renal failure Severe sepsis shock status: unspecified DVT of axillary vein, acute right I82.A11 (1) Sepsis Acute renal failure type: unspecified Sepsis acute organ dysfunction status: with acute organ dysfunction Sepsis type: sepsis due to unspecified organism Severe sepsis acute organ dysfunction type: acute renal failure Severe sepsis shock status: unspecified Qualified Code(s): A41.9 - Sepsis, unspecified organism; R65.20 - Severe sepsis without septic shock; N17.9 - Acute kidney failure, unspecified
[2020-09-30] MEDS: DEXTROSE 5% IV SCH ×3 (08:28→23:20)
[2020-09-30] MEDS: ACYCLOVIR SOD IV SCH ×3 (08:28→23:20)
[2020-09-30] MEDS: FAMOTIDINE 20 MG in SYRINGE 3 ML IV SCH ×2 (08:28→20:12)
[2020-09-30] MEDS: DOCUSATE SODIUM 100 MG CAP PO SCH ×2 (08:28→20:13)
[2020-09-30] MEDS: predniSONE 5 MG TAB PO SCH (08:29)
[2020-09-30 09:15] LABS: iSTAT Creatinine 2.1 mg/dl (0.6-1.3); iSTAT Hemoglobin 14.6 g/dl (14.0-18.0); iSTAT Ionized Calcium 1.16 mmol/l (1.12-1.32)
--- NOTE | 2020-09-30 09:40 | Electrocardiogram Report ---
Test Reason : Blood Pressure : / mmHG Vent. Rate : 133 BPM Atrial Rate : 133 BPM P-R Int : 120 ms QRS Dur : 092 ms QT Int : 378 ms P-R-T Axes : 000 045 012 degrees QTc Int : 562 ms Sinus tachycardia Otherwise normal ECG When compared with ECG of 29-SEP-2020 15:03, No significant change was found Confirmed by Shayne Rock ([id number]) on 09/30/2020 9:39:54 AM Referred By: REFERRED SELF Confirmed By:Shayne Rock
[2020-09-30] MEDS ORDERED: ONDANSETRON INJ 2 MG/ML 2 ML VIAL IV PRN (10:29)
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
[2020-09-30] MEDS: METOPROLOL TARTRATE 25 MG TAB PO SCH ×2 (10:38→20:13)
[2020-09-30 12:35] LABS: Partial Thromboplastin Ratio 1.9
--- NOTE | 2020-09-30 14:38 | Hospitalist Progress Note ---
Date of Service September 30, 2020 Assessment & Plan (1) Pulmonary embolus: Patient with hypotension, tachycardia, elevated troponin: Secondary to large pulmonary emboli, Echo shows significant diminished function of right ventricle with evidence of right ventricular thrombus, flattened septum suggestive of pulmonary hypertension. CTA chest was not able to perform secondary to acute renal failure Patient was given TPA, currently on IV heparin Lower extremity Doppler shows DVT on right lower leg: Appreciate input from level care and cardiology No evidence of sepsis, hemodynamic instability, elevated lactic acid possibly secondary to large PE, leading to cor pulmonale, low perfusion. No indication for antibiotic which is appropriately discontinued (2) Right ventricular thrombus: (3) Deep vein thrombosis (DVT) of right lower extremity: (4) Elevated troponin: Type 2 NSTEMI , due to large PE with cor-pulmonale , cardiac strain ECHO shows normal LV function , with elevated RV pressure , flattened RV septum co inciding with acute PE anticoagulation as above cardiology following , no cardiac intervention needed (5) SANTI (acute kidney injury): due to Hypotension , co-pulmonale due to large PE causing rt heart failure , poor renal perfusion No evidence of sepsis - renal function improved after after BP stabilized - (6) Other postherpetic nervous system involvement: [place] [facility] [place] he was admitted with segmental zoster paresis - had been on IV acyclovir but was transitioned to oral valacyclovir -cont on IV acyclovir for now - Final CSF culture [place] [facility] still pending - will need to follow-up (7) Ocular myasthenia: - Consult neurology - Continue steroids (8) Essential hypertension: HOLDING outpatient meds due to hypotension (9) Dyslipidemia: on statin Admission and Anticipated Discharge Date Admission Date: September 29, 2020 Subjective Follow up visit for hypertension, saddle pulmonary emboli, right ventricular thrombus. Seen in ICU room 107, Patient is awake and alert, speaking in complete sentences, denies any chest pain or shortness of breath, remains in room air Blood pressure currently stable, no fever or chills, Review of Systems Review of Systems: All systems reviewed & are unremarkable except as noted in Subjective Physical Exam Physical Exam: Physical exam: General: No acute distress, alert awake oriented x3 HEENT: PERRLA, EOMI, Heart: Regular S1-S2, no carotid bruit, no JVD, no lower extremity edema Lungs: Diminished, no wheeze or rales Abdomen: Soft nontender, no organomegaly Extremity: No cyanosis, no deformity, normal strength 5 out of 5 with upper and lower Neuro: No focal neurological deficit normal speech, Psych: Alert awake oriented x3, normal affect Results & Data Results & Data ([facility]) Vital Signs (Past 12 Hours) Vital Signs Temp Pulse Resp BP Pulse Ox 09/30/20 13:37 94 H 29 H 111/73 97 09/30/20 12:37 102 H 23 141/83 H 97 09/30/20 11:37 102 H 23 108/74 96 09/30/20 10:37 98 H 32 H 113/75 97 09/30/20 09:37 113 H 21 94/74 L 96 09/30/20 08:13 96 H 27 H 99/70 L 93 09/30/20 08:00 36.6 C 102 H 09/30/20 07:37 98 H 20 111/76 97 09/30/20 04:37 101 H 27 H 112/78 94 09/30/20 04:30 107 H 25 H 96 09/30/20 03:37 97 H 21 108/83 94 09/30/20 03:30 99 H 25 H 93 09/30/20 03:00 102 H 23 94 (1) Pulmonary embolus Acute cor pulmonale presence: with acute cor pulmonale Chronicity: acute Pulmonary embolism type: unspecified Qualified Code(s): I26.09 - Other pulmonary embolism with acute cor pulmonale
[2020-09-30] MEDS: ALBUTEROL HFA 8 GM INHALER INH PRN (15:35)
--- NOTE | 2020-09-30 15:58 | Communication Note ---
Date of Service: September 30, 2020 Neurology has been asked to evaluate Mr. Reynolds in consultation and actually in follow-up of his recent hospitalization at [facility] where he was a dmitted about 5 days ago for the abrupt onset of right leg weakness occurring in the setting of several weeks of a right L5 H distribution vaguely dermatomal rash felt to be due to herpes zoster and in the setting of subsequent CSF studies showing pleocytosis of lymphocytic type and an MRI showing enhancement of the right L4 nerve root. 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 He has a high antiacetylcholine receptor antibody titer but has never developed any signs or symptoms of generalized disease and he has been maintained on prednisone 15 mg every other day since at least 2018 and was last seen actually in 2019 and has a history of tay appearances in my office. At 1 point he had more per long-term intermittent ptosis and required higher doses of steroids but that was at least 5 years ago and he never did well with Mestinon and has been reluctant to try immunosuppression having done so well on low-dose alternate day steroids He was discharged from [facility] yesterday but en route to [facility] became weak fatigue and was found to be hypotensive febrile and has been admitted for sepsis but was found to have a pulmonary embolism, DVT of the right lower extremity, right ventricular thrombus, was treated with TPA, and is now on anticoagulation being followed by cardiology and is currently in the ICU and doing very well. He received some stress doses of steroids and is back to his baseline at this point. His other past medical history and active medical problems includes the acute DVT, right ventricular thrombus, pulmonary embolism, , elevated troponin, the possible sepsis, dyslipidemia, essential hypertension, acute renal failure, all as outlined in the chart and being actively treated at the present time Home medications include a atorvastatin albuterol cholecalciferol, docusate, fluticasone, Keralac, lisinopril, Naprosyn, prednisone 50 mg every other day, an d briefly oral acyclovir but he is now on IV and this will be continued for a total course of 10 to 14 days as per the [facility] infectious disease recommendations He also has a 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 His Covid vaccine is up-to-date he has had no other systemic issues no hospitalizations and no other symptoms referable to HEENT, cardiovascular pulmonary gastrointestinal genitourinary musculoskeletal dermatologic systems. His myasthenia throughout all this has remained stable and he has never had any diplopia or ptosis but did develop some visual blurring during his hypotensive episode that precipitated this admission On exam today his blood pressure is 111/73 pulse is 108 respirations 17 he is afebrile he has an O2 saturation 97% on room air He is awake alert oriented 3 spheres recognizes me quite pleasant cooperative and denies any neurologic symptoms other than the right leg weakness and denies any real pain in the lower extremity Cranial nerves are quite intact with no ptosis extraocular dysmotility facial weakness dysarthria speech with loss of facial sensation with good gross visual acuity bedside testing He was lying in bed and I did not test gait. He could not extend his right leg and he has a chronic atrophy of the right anterior compartment muscles and cannot dorsiflex the right foot when the limb is held with the foot in inversion. He can do some plantar flexion. All other extremities are strong including the upper extremities and the left lower extremity. Reflexes are hypoactive but present toes are downgoing on left indeterminate on the right no Bateman signs are seen Strength testing is actually good with the exceptions of the right lower extremity as described above Sensory examination is grossly intact to vibration light touch temperature line for some age-dependent vibratory loss of the lower extremities From a neurologic point of view he has a post herpetic right L4 radiculopathy which is unusual but has been reported in the past and over the years I have seen 3 or 4 cases of a similar disorder following typical zoster He also has myasthenia gravis which today has remained localized to the ocular muscles has never been generalized and probably is unlikely to proceed but 1 can never guarantee this Neurology does not need to see him regularly during this hospital stay. I would recommend that the course of acyclovir recommended by the [place] infectious disease group be continued up to 10 to 14 days and he can probably switch back to oral agents at this point but all that are internal medicine group make this call He should continue his prednisone 15 mg every other day I could see him back in neurologic follow-up in my office in 4 to 6 weeks and at that time I think I will schedule him for an EMG of the right lower extremity. This will help establish how much neurogenic injury has occurred in terms of actual axonal loss. Unfortunately I think there will be a significant amount of this although the nerve root edema might hopefully reduce more demyelination and axonal loss and this is a process that can be reversed Unfortunate only time will tell If I am back in the hospital over the weekend I will make some social visits but I do not think regular neurologic follow-up is required on a daily basis Feliberto Maravilla MD Coding Level of Care Code None
[2020-09-30] MEDS ORDERED: SODIUM CHLORIDE 0.65% NA SOLN 45 ML (OCEAN) ONE (16:12)
[2020-09-30] MEDS ORDERED: SODIUM CHLORIDE 0.65% NA SOLN 45 ML (OCEAN) PRN (16:39)
[2020-09-30] MEDS: ATORVASTATIN 20 MG TAB PO SCH (17:12)
[2020-09-30] MEDS ORDERED: DAPTOmycin 475 MG in SYRINGE 0 ML IV SCH (18:00)
[2020-10-01 04:41] LABS: Basophils # (auto) 0.05 K/uL (0-0.2); Basophils % (auto) 0.5 %; Eosinophils # (auto) 0.01 K/uL (0-0.5); Eosinophils % (auto) 0.1 %; Hematocrit (blood only) 28.5 % (42-52); Hemoglobin 9.7 g/dL (14.0-18.0); Immature Granulocytes # (auto) 0.03 K/uL (0.00-0.02); Immature Granulocytes % (auto) 0.3 %; Lymphocytes # (auto) 1.81 K/uL (1.2-3.4); Lymphocytes % (auto) 17.6 %; Mean Corpuscular Hemoglobin 32.2 pg (25-34); Mean Corpuscular Volume 94.7 fL (80-100); Mean Platelet Volume 10.3 fL (7.4-10.4); Monocytes % (auto) 9.7 %; Neutrophils # (auto) 7.39 K/uL (1.4-6.5); Neutrophils % (auto) 71.8 %; Platelet Count 165 K/uL (130-400); RDW Coefficient of Variation 13.3 % (11.5-14.5); RDW Standard Deviation 45.7 fL (36.4-46.3); Red Blood Count 3.01 M/uL (4.7-6.1); White Blood Count 10.29 K/uL (4.8-10.8)
[2020-10-01 04:52] LABS: Partial Thromboplastin Ratio 1.4; Partial Thromboplastin Time 36.5 Seconds (21.0-31.0)
[2020-10-01 05:05] LABS: Albumin Level 2.4 gm/dl (3.4-5.0); BUN Creatinine Ratio 51.9 (10-20); Creatinine Clr Calc Pharmacy 99.1 ml/min; Est GFR (Non-African American) 88.9 ml/min; Magnesium 1.9 mg/dl (1.8-2.4); Potassium 3.8 mmol/L (3.5-5.1)
[2020-10-01] MEDS ORDERED: Nursing to Pharmacy Communication SCH (05:15)
[2020-10-01 05:18] LABS: Bilirubin Direct 0.3 mg/dl (0-0.2); Bilirubin,Total 0.8 mg/dl (0.2-1); Phosphorus 2.7 mg/dl (2.5-4.9); Total Protein 5.1 gm/dl (6.4-8.2)
[2020-10-01] MEDS ORDERED: HEPARIN IV BOLUS 3,000 UNITS in SYRINGE 0 ML IV ONE (05:30)
[2020-10-01] MEDS: HEPARIN SODIUM/DEXTROSE 25,000 UNITS/500 ML BAG IV SCH (05:54)
--- NOTE | 2020-10-01 07:26 | Cardiology Progress Note ---
Date of Service October 01, 2020 Assessment & Plan (1) Pulmonary embolus: 70 patient admitted with presumed large pulmonary embolus with evidence of right ventricular dilatation, dysfunction, and apical RV thrombus on echocardiogram. DVT present indirect evidence of moderate to severe pulmonary hypertension with IVC dilatation. Patient treated with TPA. IV heparin currently infusing. Hemodynamics have improved. Heart rates mildly elevated We will increase metoprolol tartrate to 25 mg twice per day, supplement potassium and attempt to avoid atrial fibrillation (2) Elevated troponin I level: Secondary to pulmonary embolus with RV strain. (3) Right ventricular thrombus: Possible right ventricular apical thrombus on echocardiogram. Status post TPA and IV heparin. (4) Deep vein thrombosis (DVT) of right lower extremity: Continue IV heparin. Admission and Anticipated Discharge Date Admission Date: September 29, 2020 Subjective Patient seen and examined, chart, medications, telemetry reviewed. Patient currently uncomfortable from leg pain no acute dyspnea or chest pain. No syncope or near syncope. No bleeding difficulties. Telemetry sinus tachycardia without arrhythmias Review of Systems Review of Systems: All systems reviewed & are unremarkable except as noted in HPI & below Physical Exam Constitutional: + ill appearing; no acute distress Eyes: PERRL, conjunctivae normal, anicteric sclerae ENMT: external ear and nose normal, oropharynx normal Respiratory: normal respiratory effort, lungs clear to auscultation Cardiovascular: Rate/Rhythm: regular rate, regular rhythm and + tachycardic Heart Sounds: no gallop Vessels: no JVD Extremities: + edema (Trace) Results & Data ([facility]) Vital Signs (Past 12 Hours) Vital Signs Temp Pulse Resp BP Pulse Ox 10/01/20 06:36 76 21 103/73 100 10/01/20 06:06 81 18 93/68 L 100 10/01/20 05:36 100 H 25 H 117/82 99 10/01/20 05:06 85 19 105/66 90 10/01/20 04:37 80 22 96/66 L 99 10/01/20 04:07 82 20 126/81 99 10/01/20 04:00 36.7 C 10/01/20 03:36 96 H 23 127/74 100 10/01/20 03:06 96 H 22 114/77 100 10/01/20 02:37 84 21 98/64 L 99 10/01/20 02:06 85 24 106/64 93 10/01/20 01:37 85 22 108/67 95 10/01/20 01:06 83 24 109/62 99 10/01/20 00:36 104 H 22 114/75 98 10/01/20 00:07 84 26 H 90/66 L 99 09/30/20 23:40 36.8 C 09/30/20 23:36 100 H 24 101/73 97 09/30/20 23:06 100 H 20 104/74 98 09/30/20 22:51 81 09/30/20 22:36 82 25 H 102/69 95 09/30/20 22:07 87 17 94/69 L 92 09/30/20 21:37 90 28 H 104/67 97 09/30/20 21:29 94 H 26 H 110/69 94 09/30/20 21:07 101 H 21 93/72 L 96 09/30/20 20:36 113 H 22 97/77 L 96 09/30/20 20:07 114 H 32 H 100/74 95 09/30/20 20:00 36.9 C 09/30/20 19:36 119 H 22 135/82 95 Laboratory Results Laboratory Results - last 24 hr 09/29/20 09/30/20 09/30/20 15:39 05:19 11:53 WBC RBC Hgb POC Hgb 14.6 Hct POC Hct 43 MCV MCH MCHC RDW Std Deviation RDW Coeff of Willian Plt Count MPV Immature Gran % (Auto) Neut % (Auto) Lymph % (Auto) [place] % (Auto) Eos % (Auto) Baso % (Auto) Neut # (Auto) Lymph # (Auto) [place] # (Auto) Eos # (Auto) Baso # (Auto) Immature Gran # (Auto) APTT 51.0 H* PTT Ratio 1.9 POC Sodium 137 Sodium POC Potassium 5.0 Potassium POC Chloride 99 L Chloride Carbon Dioxide POC Total CO2 25 Anion Gap POC Anion Gap 18.0 POC BUN 27 H BUN Creatinine POC Creatinine 2.1 H Est Cr Clr Drug Dosing Est GFR ( Amer) Est GFR (Non-Af Amer) BUN/Creatinine Ratio Glucose POC Glucose POC Glucose (other) 156 H Calcium POC Ioniz Calcium Ward 1.16 Ionized Calcium Phosphorus Magnesium Total Bilirubin Direct Bilirubin AST ALT Alkaline Phosphatase Total Protein Albumin Lipase Random Cortisol 24.01 09/30/20 10/01/20 10/01/20 23:28 04:27 04:27 WBC 10.29 RBC 3.01 L Hgb 9.7 L POC Hgb Hct 28.5 L POC Hct MCV 94.7 MCH 32.2 MCHC 34.0 RDW Std Deviation 45.7 RDW Coeff of Willian 13.3 Plt Count 165 MPV 10.3 Immature Gran % (Auto) 0.3 Neut % (Auto) 71.8 Lymph % (Auto) 17.6 [place] % (Auto) 9.7 Eos % (Auto) 0.1 Baso % (Auto) 0.5 Neut # (Auto) 7.39 H Lymph # (Auto) 1.81 [place] # (Auto) 1.00 H Eos # (Auto) 0.01 Baso # (Auto) 0.05 Immature Gran # (Auto) 0.03 H APTT 36.5 H PTT Ratio 1.4 POC Sodium Sodium POC Potassium Potassium POC Chloride Chloride Carbon Dioxide POC Total CO2 Anion Gap POC Anion Gap POC BUN BUN Creatinine POC Creatinine Est Cr Clr Drug Dosing Est GFR ( Amer) Est GFR (Non-Af Amer) BUN/Creatinine Ratio Glucose POC Glucose 125 H POC Glucose (other) Calcium POC Ioniz Calcium Ward Ionized Calcium Phosphorus Magnesium Total Bilirubin Direct Bilirubin AST ALT Alkaline Phosphatase Total Protein Albumin Lipase Random Cortisol 10/01/20 10/01/20 04:27 04:27 WBC RBC Hgb POC Hgb Hct POC Hct MCV MCH MCHC RDW Std Deviation RDW Coeff of Willian Plt Count MPV Immature Gran % (Auto) Neut % (Auto) Lymph % (Auto) [place] % (Auto) Eos % (Auto) Baso % (Auto) Neut # (Auto) Lymph # (Auto) [place] # (Auto) Eos # (Auto) Baso # (Auto) Immature Gran # (Auto) APTT PTT Ratio POC Sodium Sodium 143 POC Potassium Potassium 3.8 POC Chloride Chloride 111 H Carbon Dioxide 28 POC Total CO2 Anion Gap 4.0 POC Anion Gap POC BUN BUN 44 H Creatinine 0.85 POC Creatinine Est Cr Clr Drug Dosing 99.1 Est GFR ( Amer) 103.0 Est GFR (Non-Af Amer) 88.9 BUN/Creatinine Ratio 51.9 H Glucose 104 H POC Glucose POC Glucose (other) Calcium 8.0 L POC Ioniz Calcium Ward Ionized Calcium 1.10 L Phosphorus 2.7 Magnesium 1.9 Total Bilirubin 0.8 D Direct Bilirubin 0.3 H AST 13 L ALT 27 Alkaline Phosphatase 54 Total Protein 5.1 L Albumin 2.4 L Lipase 135 Random Cortisol (1) Pulmonary embolus Pulmonary embolism type: unspecified Chronicity: acute Acute cor pulmonale presence: with acute cor pulmonale Qualified Code(s): I26.09 - Other pulmonary embolism with acute cor pulmonale
[2020-10-01] MEDS ORDERED: POTASSIUM CHLORIDE CRTAB 20 MEQ TABCR PO ONE (07:30)
--- NOTE | 2020-10-01 07:38 | Critical Care Progress Note ---
Date of Service October 01, 2020 Assessment & Plan (1) Admitted to intensive care unit: Reason Critically Ill: 70-year-old male presenting with acute onset of hypertension, tachycardia, generalized weakness with concerns for possible sepsis-like presentation with elevated troponin of concern requiring close hemodynamic monitoring and possible need for pressors. NEURO - * CAM ICU: NEGATIVE * Ocular myasthenia: * Patient currently on steroids every other day. * Receive stress dose steroids in the emergency department. * Continue with daily p.o. dosing. CARDIAC/VASCULAR - * Acute cor pulmonale * Troponin greater than 3. * beta-sandy increased to 25 twice daily * limited echo reviewed * Hypotension: resolved * tachycardia: Improved RESPIRATORY - * Massive PE: * Transition to Eliquis * Supplemental O2 resolved * COPD: * Ongoing home Rx as needed. GI/NUTRITION - * N.p.o. pending TPA administration. * Prophylaxis: Famotidine RENAL/LYTES - * SANTI: resolved * Lactic acid acidosis: Resolved - * UA reviewed: Hyaline casts and granular casts ENDO - * No history of diabetes or thyroid disease. * BSGs per unit protocol. ISS --> gtt per unit policy. HEME - * Stable H&H * Monitor closely for signs/symptoms of bleeding status post TPA administration. * Type and screen prior to TPA administration. ID - * Shingles * Acyclovir 5 times daily x7 days LINES/IV ACCESS - * PIVs x3 * LEFT radial A-line discontinued today DVT PROPHYLAXIS - * TPA --> heparin drip--> Eliquis * SCDs Disposition: Stable for downgrade out of ICU (2) Elevated troponin: (3) SANTI (acute kidney injury): (4) Acute hypotension: (5) Tachycardia: (6) Sepsis: (7) DVT of axillary vein, acute right: Admission and Anticipated Discharge Date Admission Date: September 29, 2020 Supervising Physician Co-Signing Physician Notes I discussed the case with the bedside nurse Subjective No complaints resting comfortably in bed this morning Review of Systems Review of Systems: No complaints Physical Exam Physical Exam: General: Alert. nontoxic. Skin: Warm, dry, Head: Atraumatic Ears, nose, mouth and throat: airway patent Cardiovascular: Normal peripheral perfusion Respiratory: no respiratory distress Gastrointestinal: Non distended Musculoskeletal: No deformity Results & Data Results & Data ([facility]) Vital Signs (Past 12 Hours) Vital Signs Temp Pulse Resp BP Pulse Ox 10/01/20 06:36 76 21 103/73 100 10/01/20 06:06 81 18 93/68 L 100 10/01/20 05:36 100 H 25 H 117/82 99 10/01/20 05:06 85 19 105/66 90 10/01/20 04:37 80 22 96/66 L 99 10/01/20 04:07 82 20 126/81 99 10/01/20 04:00 36.7 C 10/01/20 03:36 96 H 23 127/74 100 10/01/20 03:06 96 H 22 114/77 100 10/01/20 02:37 84 21 98/64 L 99 10/01/20 02:06 85 24 106/64 93 10/01/20 01:37 85 22 108/67 95 10/01/20 01:06 83 24 109/62 99 10/01/20 00:36 104 H 22 114/75 98 10/01/20 00:07 84 26 H 90/66 L 99 09/30/20 23:40 36.8 C 09/30/20 23:36 100 H 24 101/73 97 09/30/20 23:06 100 H 20 104/74 98 09/30/20 22:51 81 09/30/20 22:36 82 25 H 102/69 95 09/30/20 22:07 87 17 94/69 L 92 09/30/20 21:37 90 28 H 104/67 97 09/30/20 21:29 94 H 26 H 110/69 94 09/30/20 21:07 101 H 21 93/72 L 96 09/30/20 20:36 113 H 22 97/77 L 96 09/30/20 20:07 114 H 32 H 100/74 95 09/30/20 20:00 36.9 C Coding Level of Care Code 85726 Subseq Hosp Care Lvl 3 Diagnoses Admitted to intensive care unit Z78.9 Elevated troponin R77.8 SANTI (acute kidney injury) N17.9 Acute hypotension I95.9 Tachycardia R00.0 Sepsis A41.9; R65.20; N17.9 Sepsis type: sepsis due to unspecified organism Sepsis acute organ dysfunction status: with acute organ dysfunction Severe sepsis acute organ dysfunction type: acute renal failure Acute renal failure type: unspecified Severe sepsis shock status: unspecified DVT of axillary vein, acute right I82.A11 (1) Sepsis Sepsis type: sepsis due to unspecified organism Sepsis acute organ dysfunction status: with acute organ dysfunction Severe sepsis acute organ dysfunction type: acute renal failure Acute renal failure type: unspecified Severe sepsis shock status: unspecified Qualified Code(s): A41.9 - Sepsis, unspecified organism; R65.20 - Severe sepsis without septic shock; N17.9 - Acute kidney failure, unspecified
[2020-10-01] MEDS: DOCUSATE SODIUM 100 MG CAP PO SCH ×2 (08:13→20:49)
[2020-10-01] MEDS: METOPROLOL TARTRATE 25 MG TAB PO SCH ×2 (08:13→20:49)
[2020-10-01] MEDS: FAMOTIDINE 20 MG in SYRINGE 3 ML IV SCH (08:15)
[2020-10-01] MEDS: APIXABAN 5 MG TABLET PO SCH ×2 (10:19→20:50)
[2020-10-01] MEDS: ACYCLOVIR 400 MG TAB PO SCH ×3 (10:19→20:50)
--- NOTE | 2020-10-01 15:06 | Hospitalist Progress Note ---
Date of Service October 01, 2020 Assessment & Plan (1) Pulmonary embolus: presented with hypotension, tachycardia, elevated troponin: Secondary to large pulmonary emboli, Echo shows significant diminished function of right ventricle with evidence of right ventricular thrombus, flattened septum suggestive of pulmonary hypertension. CTA chest was not able to perform secondary to acute renal failure Patient was given TPA, then was started on IV heparin Lower extremity Doppler shows DVT on right lower leg: Appreciate input from critical care and cardiology pt remains hemodynamically stable transferred out of ICU Iv heparin D/samantha started on PO Eliquis 10 mg PO BID for 7 days , then 5 mg BID to continue No evidence of sepsis, hemodynamic instability, elevated lactic acid possibly secondary to large PE, leading to cor pulmonale, low perfusion. No indication for antibiotic which is appropriately discontinued (2) Right ventricular thrombus: anticoagulation with Eliquis (3) Deep vein thrombosis (DVT) of right lower extremity: anticoagulation with eliquis (4) Elevated troponin: Type 2 NSTEMI , due to large PE with cor-pulmonale , cardiac strain ECHO shows normal LV function , with elevated RV pressure , flattened RV septum co inciding with acute PE anticoagulation as above cardiology following , no cardiac intervention needed Sinus tachycardia : possible due to large PE on lopressor dose increased to 25 mg BID monitor in tele (5) SANTI (acute kidney injury): due to Hypotension , co-pulmonale due to large PE causing rt heart failure , poor renal perfusion No evidence of sepsis - cr was elevated 2 given IV fluid , BP has improved renal function normalized , Cr 0.8 (6) Other postherpetic nervous system involvement: Discharged from [facility] this AM where he was admitted with segmental zoster paresis - had been on IV acyclovir but was transitioned to oral valacyclovir - -cont Acyclovir Right ankle pain : pt reports recent fall and rt ankle fracture , was seen at [facility] has Cam boot complains of worsening pain , ordered for xray of right ankle PT/OT eval requested (7) Ocular myasthenia: - Consult neurology - Continue steroids (8) Essential hypertension: HOLDING outpatient meds due to hypotension (9) Dyslipidemia: on statin Full code DVT prophylaxis : on eliquis Disposition : expected to be discharged home when medically stable Admission and Anticipated Discharge Date Admission Date: September 29, 2020 Subjective no complain of shortness of breath , no fever or chills vitals remains stable complains of pain on right ankle ( hx of recent fx ) feels fine otherwise , wants to go home tomorrow Review of Systems Constitutional: as per Subjective / HPI Eyes: as per Subjective / HPI Physical Exam Physical Exam: Physical exam: General: No acute distress, alert awake oriented x3 HEENT: PERRLA, EOMI, Heart: Regular S1-S2, no carotid bruit, no JVD, no lower extremity edema Lungs: Diminished, no wheeze or rales Abdomen: Soft nontender, no organomegaly Extremity: No cyanosis, no deformity, normal strength 5 out of 5 with upper and lower Neuro: No focal neurological deficit normal speech, Psych: Alert awake oriented x3, normal affect Results & Data Results & Data ([facility]) Vital Signs (Past 12 Hours) Vital Signs Temp Pulse Pulse Resp BP BP Pulse Ox 10/01/20 11:06 36.7 C 79 18 113/69 96 10/01/20 08:36 98 H 27 H 110/72 97 10/01/20 08:30 108 H 23 95 10/01/20 08:25 114 H 17 123/77 97 10/01/20 08:00 36.7 C 98 H 10/01/20 07:07 82 17 112/72 100 10/01/20 06:36 76 21 103/73 100 10/01/20 06:06 81 18 93/68 L 100 10/01/20 05:36 100 H 25 H 117/82 99 10/01/20 05:06 85 19 105/66 90 10/01/20 04:37 80 22 96/66 L 99 10/01/20 04:07 82 20 126/81 99 10/01/20 04:00 36.7 C 10/01/20 03:36 96 H 23 127/74 100 (1) Pulmonary embolus Acute cor pulmonale presence: with acute cor pulmonale Chronicity: acute Pulmonary embolism type: unspecified Qualified Code(s): I26.09 - Other pulmonary embolism with acute cor pulmonale
[2020-10-01] MEDS: ATORVASTATIN 20 MG TAB PO SCH (15:14)
[2020-10-02] MEDS: ACYCLOVIR 400 MG TAB PO SCH ×6 (00:10→22:51)
[2020-10-02 06:11] LABS: Basophils # (auto) 0.04 K/uL (0-0.2); Basophils % (auto) 0.5 %; Eosinophils # (auto) 0.04 K/uL (0-0.5); Eosinophils % (auto) 0.5 %; Hematocrit (blood only) 28.5 % (42-52); Hemoglobin 9.4 g/dL (14.0-18.0); Immature Granulocytes # (auto) 0.03 K/uL (0.00-0.02); Immature Granulocytes % (auto) 0.4 %; Lymphocytes # (auto) 2.16 K/uL (1.2-3.4); Lymphocytes % (auto) 25.5 %; Mean Corpuscular Hemoglobin 31.6 pg (25-34); Mean Platelet Volume 10.3 fL (7.4-10.4); Monocytes # (auto) 0.83 K/uL (0.11-0.59); Monocytes % (auto) 9.8 %; Neutrophils # (auto) 5.38 K/uL (1.4-6.5); Neutrophils % (auto) 63.3 %; Platelet Count 212 K/uL (130-400); RDW Coefficient of Variation 13.5 % (11.5-14.5); RDW Standard Deviation 46.6 fL (36.4-46.3); Red Blood Count 2.97 M/uL (4.7-6.1); White Blood Count 8.48 K/uL (4.8-10.8)
[2020-10-02 06:38] LABS: BUN Creatinine Ratio 36.2 (10-20); Calcium 8.4 mg/dl (8.5-10.1); Creatinine Clr Calc Pharmacy 112.7 ml/min; Est GFR (African American) 109.1 ml/min; Est GFR (Non-African American) 94.1 ml/min; Phosphorus 3.1 mg/dl (2.5-4.9); Potassium 4.3 mmol/L (3.5-5.1)
[2020-10-02] MEDS: METOPROLOL TARTRATE 25 MG TAB PO SCH ×2 (08:40→20:34)
[2020-10-02] MEDS: predniSONE 5 MG TAB PO SCH (08:40)
[2020-10-02] MEDS: APIXABAN 5 MG TABLET PO SCH ×2 (08:41→20:34)
[2020-10-02] MEDS: DOCUSATE SODIUM 100 MG CAP PO SCH ×2 (08:41→20:35)
[2020-10-02] MEDS: ATORVASTATIN 20 MG TAB PO SCH (16:28)
[2020-10-02] MEDS ORDERED: oxyCODONE HCL IR 5 MG TAB (IMMEDIATE RELEASE) PO PRN (16:31)
[2020-10-02] MEDS ORDERED: FLUTICASONE PROPIONATE NA SPR 16 GM BTL NAE PRN (16:31)
--- NOTE | 2020-10-02 16:33 | Hospitalist Progress Note ---
Date of Service October 02, 2020 Assessment & Plan (1) Pulmonary embolus: presented with hypotension, tachycardia, elevated troponin: Secondary to large pulmonary emboli, Echo shows significant diminished function of right ventricle with evidence of right ventricular thrombus, flattened septum suggestive of pulmonary hypertension. CTA chest was not able to perform secondary to acute renal failure Patient was given TPA, then was started on IV heparin Lower extremity Doppler shows DVT on right lower leg: Appreciate input from critical care and cardiology pt remains hemodynamically stable transferred out of ICU Iv heparin D/samantha started on PO Eliquis 10 mg PO BID for 7 days , then 5 mg BID to continue Need to be on anticoagulation, Eliquis indefinitely Started on Lopressor 25 mg twice daily, for tachyarrhythmia, to prevent cardiac arrhythmia, A. fib No tachycardia or arrhythmia noted on telemetry, appreciate cardiology input Patient will need repeat echocardiogram in a week No evidence of sepsis, hemodynamic instability, elevated lactic acid possibly secondary to large PE, leading to cor pulmonale, low perfusion. No indication for antibiotic which is appropriately discontinued (2) Right ventricular thrombus: anticoagulation with Eliquis (3) Deep vein thrombosis (DVT) of right lower extremity: anticoagulation with eliquis (4) Elevated troponin: Type 2 NSTEMI , due to large PE with cor-pulmonale , cardiac strain ECHO shows normal LV function , with elevated RV pressure , flattened RV septum co inciding with acute PE anticoagulation as above cardiology following , no cardiac intervention needed Repeat echocardiogram in 1 week Sinus tachycardia : possible due to large PE on lopressor dose increased to 25 mg BID monitor in tele (5) SANTI (acute kidney injury): due to Hypotension , co-pulmonale due to large PE causing rt heart failure , poor renal perfusion No evidence of sepsis - cr was elevated 2 given IV fluid , BP has improved renal function normalized , Cr 0.8 Patient is asked to avoid NSAIDs high risk for future acute renal injury, high risk for bleeding while taking Eliquis (6) Other postherpetic nervous system involvement: Discharged from [facility] this AM where he was admitted with segmental zoster paresis - had been on IV acyclovir but was transitioned to oral valacyclovir - -cont Acyclovir Right ankle pain : pt reports recent fall and rt ankle fracture , was seen at [facility] has Cam boot She wants to return home with home PT (7) Ocular myasthenia: - Consult neurology - Continue steroids (8) Essential hypertension: Blood pressure stable, continue on beta-sandy (9) Dyslipidemia: on statin Full code DVT prophylaxis : on eliquis Disposition : Patient wants to be discharged home today with home health and home PT, will update case management Admission and Anticipated Discharge Date Admission Date: September 29, 2020 Subjective Patient reports of feeling fine no complaint of chest pain no shortness of b reath, Eager to be discharged home, Does not want to go back to [facility], He feels his strength is back to his baseline, he uses a cam boot for his recent right ankle sprain, , Daughter present at bedside, Have PT OT evaluation in a.m., if patient does well, plan to discharge home tomorrow with home health and home PT Has been on Eliquis, has been tolerating well, no bleeding complication Risk of bleeding while on Eliquis explained to patient in detail, voiced understanding Review of Systems Review of Systems: All systems reviewed & are unremarkable except as noted in Subjective Physical Exam Physical Exam: Physical exam: General: No acute distress, alert awake oriented x3 HEENT: PERRLA, EOMI, Heart: Regular S1-S2, no carotid bruit, no JVD, no lower extremity edema Lungs: Diminished, no wheeze or rales Abdomen: Soft nontender, no organomegaly Extremity: No cyanosis, no deformity, normal strength 5 out of 5 with upper and lower Neuro: No focal neurological deficit normal speech, Psych: Alert awake oriented x3, normal affect Results & Data Results & Data ([facility]) Vital Signs (Past 12 Hours) Vital Signs Temp Pulse Pulse Pulse Resp BP BP 10/02/20 16:00 96 H 10/02/20 15:48 36.9 C 88 20 131/84 10/02/20 13:12 10/02/20 11:48 36.8 C 89 18 127/89 10/02/20 08:00 91 H 10/02/20 07:59 36.8 C 101 H 20 94/60 L 10/02/20 07:01 36.8 C 91 H 20 149/72 H Pulse Ox 10/02/20 16:00 10/02/20 15:48 97 10/02/20 13:12 97 10/02/20 11:48 97 10/02/20 08:00 10/02/20 07:59 97 06/27/21 07:01 95 (1) Pulmonary embolus Pulmonary embolism type: unspecified Chronicity: acute Acute cor pulmonale presence: with acute cor pulmonale Qualified Code(s): I26.09 - Other pulmonary embolism with acute cor pulmonale
[2020-10-02] MEDS: ALBUTEROL HFA 8 GM INHALER INH PRN (17:10)
[2020-10-03] MEDS: ALBUTEROL HFA 8 GM INHALER INH PRN (03:39)
[2020-10-03 06:01] LABS: Basophils # (auto) 0.02 K/uL (0-0.2); Basophils % (auto) 0.3 %; Eosinophils # (auto) 0.05 K/uL (0-0.5); Eosinophils % (auto) 0.7 %; Hematocrit (blood only) 28.5 % (42-52); Hemoglobin 9.5 g/dL (14.0-18.0); Immature Granulocytes # (auto) 0.03 K/uL (0.00-0.02); Immature Granulocytes % (auto) 0.4 %; Lymphocytes # (auto) 1.76 K/uL (1.2-3.4); Mean Corpuscular Hgb Conc 33.3 g/dL (32-36); Mean Platelet Volume 9.9 fL (7.4-10.4); Monocytes # (auto) 0.73 K/uL (0.11-0.59); Monocytes % (auto) 9.5 %; Neutrophils # (auto) 5.07 K/uL (1.4-6.5); Neutrophils % (auto) 66.1 %; Platelet Count 239 K/uL (130-400); RDW Coefficient of Variation 13.7 % (11.5-14.5); RDW Standard Deviation 46.4 fL (36.4-46.3); Red Blood Count 2.97 M/uL (4.7-6.1); White Blood Count 7.66 K/uL (4.8-10.8)
[2020-10-03 06:34] LABS: BUN Creatinine Ratio 25.9 (10-20); Calcium 8.4 mg/dl (8.5-10.1); Creatinine Clr Calc Pharmacy 122.7 ml/min; Est GFR (African American) 112.3 ml/min; Est GFR (Non-African American) 96.9 ml/min; Magnesium 1.8 mg/dl (1.8-2.4); Phosphorus 3.2 mg/dl (2.5-4.9); Potassium 3.9 mmol/L (3.5-5.1)
[2020-10-03] MEDS: ACYCLOVIR 400 MG TAB PO SCH ×2 (07:48→12:01)
[2020-10-03] MEDS: APIXABAN 5 MG TABLET PO SCH (08:30)
[2020-10-03] MEDS: METOPROLOL TARTRATE 25 MG TAB PO SCH (08:31)
[2020-10-03] MEDS: DOCUSATE SODIUM 100 MG CAP PO SCH (08:35)
[2020-10-03] MEDS ORDERED: CHOLECALCIFEROL 1,000 UNITS 25 MCG TAB PO SCH (09:00)
[2020-10-03] MEDS ORDERED: lisinopril 10 MG TAB PO SCH (09:00)
--- NOTE | 2020-10-03 10:34 | Electrocardiogram Report ---
Test Reason : Blood Pressure : / mmHG Vent. Rate : 100 BPM Atrial Rate : 100 BPM P-R Int : 160 ms QRS Dur : 088 ms QT Int : 324 ms P-R-T Axes : 041 045 015 degrees QTc Int : 417 ms Normal sinus rhythm Normal ECG When compared with ECG of 29-SEP-2020 18:08, No significant change was found Confirmed by Rishi Potts ([id number]) on 10/03/2020 10:33:54 AM Referred By: REFERRED SELF Confirmed By:Rishi Potts
--- NOTE | 2020-10-03 11:31 | Cardiology Progress Note ---
Date of Service October 03, 2020 Assessment & Plan (1) Pulmonary embolus: 70 patient admitted with presumed large pulmonary embolus with evidence of right ventricular dilatation, dysfunction, and apical RV thrombus on echocardiogram. DVT present indirect evidence of moderate to severe pulmonary hypertension with IVC dilatation. Patient treated with TPA. Now hemodynamically stable. No arrhythmias. Patient anticoagulated with Eliquis Recommendations would continue metoprolol for heart rate and prevention of atrial arrhythmias Repeat echocardiogram 1 month (2) Elevated troponin I level: Secondary to pulmonary embolus with RV strain. (3) Right ventricular thrombus: Recommend repeat echocardiogram 1 month (4) Deep vein thrombosis (DVT) of right lower extremity: Admission and Anticipated Discharge Date Admission Date: September 29, 2020 Subjective Patient was seen and examined, chart, medications, telemetry reviewed. No arrhythmias with heart rate better controlled. No respiratory distress. Patient anticoagulated with Eliquis Review of Systems Review of Systems: All systems reviewed & are unremarkable except as noted in Subjective Physical Exam Constitutional: WD/WN, vitals as above no acute distress Eyes: PERRL, conjunctivae normal, anicteric sclerae ENMT: external ear and nose normal, oropharynx normal Respiratory: normal respiratory effort, lungs clear to auscultation Cardiovascular: Rate/Rhythm: regular rate, regular rhythm and + tachycardic Heart Sounds: no gallop Vessels: no JVD Extremities: + edema (Trace) Results & Data ([facility]) Vital Signs (Past 12 Hours) Vital Signs Temp Pulse Pulse Resp BP BP Pulse Ox 10/03/20 10:56 36.5 C 77 20 123/79 96 10/03/20 07:54 92 H 10/03/20 07:29 36.5 C 103 H 22 144/90 H 94 10/03/20 03:41 87 16 97 10/03/20 03:31 36.7 C 89 19 125/85 100 10/03/20 00:00 72 Laboratory Results Laboratory Results - last 24 hr 10/03/20 10/03/20 05:33 05:33 WBC 7.66 RBC 2.97 L Hgb 9.5 L Hct 28.5 L MCV 96.0 MCH 32.0 MCHC 33.3 RDW Std Deviation 46.4 H RDW Coeff of Willian 13.7 Plt Count 239 MPV 9.9 Immature Gran % (Auto) 0.4 Neut % (Auto) 66.1 Lymph % (Auto) 23.0 [place] % (Auto) 9.5 Eos % (Auto) 0.7 Baso % (Auto) 0.3 Neut # (Auto) 5.07 Lymph # (Auto) 1.76 [place] # (Auto) 0.73 H Eos # (Auto) 0.05 Baso # (Auto) 0.02 Immature Gran # (Auto) 0.03 H Sodium 141 Potassium 3.9 Chloride 107 Carbon Dioxide 28 Anion Gap 6.0 BUN 18 Creatinine 0.69 Est Cr Clr Drug Dosing 122.7 Est GFR ( Amer) 112.3 Est GFR (Non-Af Amer) 96.9 BUN/Creatinine Ratio 25.9 H Glucose 98 Calcium 8.4 L Phosphorus 3.2 Magnesium 1.8 (1) Pulmonary embolus Pulmonary embolism type: unspecified Chronicity: acute Acute cor pulmonale presence: with acute cor pulmonale Qualified Code(s): I26.09 - Other pulmonary embolism with acute cor pulmonale
--- NOTE | 2020-10-03 12:21 | Hospitalist Progress Note ---
Date of Service October 03, 2020 Assessment & Plan (1) Pulmonary embolus: presented with hypotension, tachycardia, elevated troponin: Secondary to large pulmonary emboli, Echo on 09/29/2020: Shows right ventricle moderate to severely dilated, right ventricular systolic function is moderately reduced. Hypokinesis of the mid right ventricular myocardial wall segments, basal and apical wall motion are improved compared to the prior echocardiogram Flattened septum is consistent with RV pressure overload ejection fraction 55-60% left ventricular systolic function is normal Patient admitted with acute renal failure creatinine elevated more than 2, CTA of chest was not done Patient was given TPA, then was started on IV heparin Lower extremity Doppler shows DVT on right lower leg: High risk for right lower extremity DVT as patient had limited mobility of right leg recent injury/fracture on right ankle has been on cam boot, was seen and [facility], 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 Developed right lower extremity DVT with propagation to the lungs: Patient was admitted to ICU for hemodynamic instability, post TPA. No bleeding complication noted, patient continue with IV heparin Appreciate input from critical care and cardiology pt remains hemodynamically stable transferred out of ICU Iv heparin D/samantha started on PO Eliquis 10 mg PO BID for 7 days , then 5 mg BID to continue Need to be on anticoagulation, Eliquis indefinitely Started on Lopressor 25 mg twice daily, for tachyarrhythmia, to prevent cardiac arrhythmia, A. fib No tachycardia or arrhythmia noted on telemetry, appreciate cardiology input Patient will need repeat echocardiogram in a week No evidence of sepsis, hemodynamic instability, elevated lactic acid possibly secondary to large PE, leading to cor pulmonale, low perfusion. No indication for antibiotic which is appropriately discontinued (2) Right ventricular thrombus: anticoagulation with Eliquis (3) Deep vein thrombosis (DVT) of right lower extremity: anticoagulation with eliquis (4) Elevated troponin: Type 2 NSTEMI , due to large PE with cor-pulmonale , cardiac strain ECHO shows normal LV function , with elevated RV pressure , flattened RV septum co inciding with acute PE anticoagulation as above cardiology following , no cardiac intervention needed Repeat echocardiogram in 1 week Sinus tachycardia : possible due to large PE on lopressor dose increased to 25 mg BID monitor in tele (5) SANTI (acute kidney injury): due to Hypotension , co-pulmonale due to large PE causing rt heart failure , poor renal perfusion No evidence of sepsis - cr was elevated 2 given IV fluid , BP has improved renal function normalized , Cr 0.8 Patient is asked to avoid NSAIDs high risk for future acute renal injury, high risk for bleeding while taking Eliquis (6) Other postherpetic nervous system involvement: Discharged from [facility] [place] where he was admitted with segmental zoster paresis - had been on IV acyclovir but was transitioned to oral valacyclovir - -cont Acyclovir 800 mg 5 times daily for total 7 days, First first day of treatment 10/01/2020 Right ankle pain : pt reports recent fall and rt ankle fracture , was seen at [facility] has Cam boot Patient does not want to return back to [facility] health, wants to go home with home health home PT (7) Ocular myasthenia: -Follows with neurology - Continue take prednisone (8) Essential hypertension: Blood pressure stable, continue on beta-sandy lisinopril resumed (9) Dyslipidemia: on statin Full code DVT prophylaxis : on eliquis Disposition : Plan to discharge home today with home health and home PT Patient will be followed up with his primary care physician in a week, Will need repeat echocardiogram scheduled in a week to see RV function Admission and Anticipated Discharge Date Admission Date: September 29, 2020 Supervising Physician Co-Signing Physician Notes I discussed the case with the bedside nurse Subjective First no new complain, very eager to be discharged home No fever or chills no cough no chest pain Review of Systems Constitutional: as per Subjective / HPI Eyes: as per Subjective / HPI Gastrointestinal: as per Subjective / HPI, + nausea and + vomiting; no abdominal pain and no diarrhea/loose stools Musculoskeletal: + muscle weakness; no back pain, no neck pain and no stiffness Integumentary: + rash (healing shingles) Results & Data Results & Data ([facility]) Vital Signs (Past 12 Hours) Vital Signs Temp Pulse Pulse Resp BP BP Pulse Ox 10/03/20 10:56 36.5 C 77 20 123/79 96 10/03/20 07:54 92 H 10/03/20 07:29 36.5 C 103 H 22 144/90 H 94 10/03/20 03:41 87 16 97 10/03/20 03:31 36.7 C 89 19 125/85 100 (1) Pulmonary embolus Acute cor pulmonale presence: with acute cor pulmonale Chronicity: acute Pulmonary embolism type: unspecified Qualified Code(s): I26.09 - Other pulmonary embolism with acute cor pulmonale
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
[2020-10-03] MEDS ORDERED: ATORVASTATIN 20 MG TAB PO SCH (16:30)
[2020-10-08] MEDS ORDERED: APIXABAN 2.5 MG TAB PO SCH (09:00)
== END 2020-10-03 14:50 | disposition home health service (06) | DRG 175 ==
LOC: ED 14:54 → SUATTDRO 18:38 → 1E 18:38 → 2E 10-01 08:00